=== PATIENT | male | born 1950 | race Asian ===

== ENCOUNTER 2023-05-30 22:52 | Emergency (ER) | payer MEDICARE, OTHER, SELFPAY ==
[2023-05-30 23:07] VITALS: BP 109/75
[2023-05-30 23:36] LABS: COVID-19 Antigen Negative (Negative)
--- NOTE | 2023-05-31 02:44 | ED.GENMED ---
History of Present Illness
General
Chief Complaint: Cold/Flu/URI Symptoms
Source: patient and family (Son who is accompanying and interpreting for the patient)
Exam Limitations: none
Time Seen by Provider: 05/31/23 02:34
Nursing documentation reviewed up to this point in time: agreed with
Travel History
Have you had any contact with someone who has COVID-19?: No
Do you have any symptoms of coronavirus? Fever > 100 degrees, chills, cough, shortness of breath, sore throat, loss of taste or smell, muscle aches, or headache?: Yes
Symptoms:: cough
History of Present Illness
History of Present Illness:
This is a non-Spanish speaking 72-year-old gentleman who has history of COPD/chronic bronchitis, hyperlipidemia, GERD, chronic abdominal pain and frequent chest pain without history of CAD nor thromboembolism.
He presents with 5-day history of cough occasionally productive of yellowish phlegm accompanied with nasal congestion. Noted to have low-grade fever tonight.
No recent travel, no leg pain or swelling.
Young niece was visiting last week and had mild URI symptoms at that time. Other than this no other close contacts with similar symptoms.
He notes left anterolateral chest discomfort that is worse with coughing. He also notes some lower back pain that is worse with movement. No radiation of the pain, no leg weakness nor numbness.
He has had no falls. No difficulty ambulating.
No nausea nor vomiting, denies diarrhea or constipation. No difficulty urinating. He has not been taking anything for symptoms.
He is chronically maintained on long-acting beta agonist/inhaled corticosteroid and utilizes albuterol inhaler for as needed cough. He follows regularly with business continuity management director and does not require supplemental oxygen.
Remote history of smoking.
Previous records reviewed. Prior hospitalization 1 year ago June 16 to June 21 for treatment of acute onset neutropenia, gastritis/gastroenteritis and iron deficiency anemia.
ED visit October 04, 2022 patient complained of anterior thigh pain along with some shortness of breath. Cardiac workup was negative, CT of the chest was negative for PE, negative for infiltrate. Thigh pain thought to be musculoskeletal in nature.
During that ED visit he was treated with DuoNeb nebulizer and steroids with improvement in shortness of breath. Discharged to home.
Past History
Past History
ED Past Medical History: COPD and GERD
ED Past Surgical History: Appendectomy and Other (hernia repair, aortoiliac bypass)
Social History
Tobacco: Former smoker (2 packs per day until November 2013)
Alcohol: None
Drug: None
Personal:
Living: with family (lives with daughter)
Employment: Not employed
Family History
Family History: Other (Noncontributory)
Phy Exam
Physical Exam
Physical Exam:
GENERAL: 72-year-old moderately thin male appears his stated age. He is bright and alert, easily communicative with his son and overall appears in no acute distress. Respirations are easy and nonlabored. Able to speak in full sentences without
difficulty. There is no nasal congestion. Rare brief dry cough is noted. Pulse ox 94% on room air.
EYE: pupils equal and reactive. anicteric
NECK: Supple, nontender, no meningismus, no significant adenopathy.
ENT: posterior pharynx is clear, oral mucosa is moist. TM clear b/l, nares patent.
CARDIAC: Regular rate and rhythm. no murmur.
LUNGS: no acute respiratory distress, moderately decreased breath sounds bilateral bases left greater than right, no wheezing nor rhonchi. Minimal tenderness left anterolateral chest wall. Palpation seems to reproduce patient's pain complaint.
There is no crepitus nor palpable bony abnormality.
ABDOMEN: Soft, nondistended, without focal tenderness, no r/g, no cvat. normoactive BS.
BACK: No midline bony tenderness. Straight leg raising is negative bilaterally.
NEUROLOGICAL: Alert and oriented x3, no focal neuro deficits. Gait is pulido and steady.
SKIN: Warm and dry, normal color, skin intact. No rash.
MUSCULOSKELETAL: No C/C/E. peripheral pulses are full and equal b/l. No palpable tenderness.
PSYCH: Normal and appropriate interaction.
Course
Orders/Labs/Results
Orders:
Orders
05/30/23 23:09
COVID-19 Antigen Urgent
Source: Nasal Swab
Influenza A+B Rapid Molecular Urgent
JITENDRA Source: Nasal Swab
Specimen Description:
05/31/23 02:37
CR Chest - 2 Views Urgent
Comment:
Reason For Exam: cough, fever
05/31/23 02:43
Electrocardiogram (*1) Urgent
Reason for Study: Chest Pain
EKG- Treatment ONCE
05/31/23 02:53
Acetaminophen [Tylenol] 650 mg .ROUTE .STK-MED ONE
Acetaminophen [Tylenol] 650 mg PO NOW STA
05/31/23 03:18
Doxycycline [Vibramycin] 100 mg PO NOW STA
Vital Signs
Initial and Last Documented VS:
Initial Vital Signs
Temp Pulse Resp BP Pulse Ox
100.4 F H 120 18 109/75 92
05/30/23 23:07 05/30/23 23:07 05/30/23 23:07 05/30/23 23:07 05/30/23 23:07
Last Documented Vital Signs
Temp Pulse Resp BP Pulse Ox
100.4 F H 120 18 109/75 92
05/30/23 23:07 05/30/23 23:07 05/30/23 23:07 05/30/23 23:07 05/30/23 23:07
MDM/Problems Addressed
Differential Diagnosis Includes:
Concern for viral URI, pneumonia, exacerbation of COPD, chest wall pain, pleural effusion. ACS, PE are much less likely. No history of coronary artery disease. No risk factors for thromboembolism and previous chest CT/PE study September 2022 was
negative for PE.
COVID and influenza testing are negative.
Will check chest x-ray and EKG.
Will give a dose of Tylenol for low-grade fever and pain.
Chronic conditions affecting care: COPD
*Radiology
Radiology exam reviewed: preliminary read by ED provider (Chest x-ray shows hyperinflation consistent with COPD. There is no evidence of infiltrate. Gas-filled large bowel at the left hemidiaphragm.)
*Pulse Oximetry
Patient hypoxic: no
*EKG
Interpreted by ED Provider?: Yes
Interpretation: normal
Comparison EKG: no changes (Unchanged from previous October 04, 2022)
Rate: normal
Rhythm: sinus
[place]: normal axis
Interval: normal interval
QRS Pattern: normal QRS
Ischemia: no ischemia
*Critical Care Note
Total Time (30-74mins, 75-104mins- exclusive of procedures): Not Applicable
Update Note
Update Note:
EKG shows normal sinus rhythm, normal axis, normal intervals, no acute ST-T wave abnormalities and overall similar and unchanged from previous EKG October 04, 2022.
Chest x-ray shows hyperinflation consistent with COPD, no evidence of infiltrate. There is moderate gas within the large bowel just beneath the left hemidiaphragm. This may be causing an element of left anterior lower chest discomfort and
left-sided abdominal discomfort.
Due to history of COPD/chronic lung disease, low-grade fever and cough reportedly productive of yellow phlegm he is certainly at risk for purulent bronchitis with an at risk for progression to pneumonia thus we will treat with a course of
doxycycline.
Short course of oral steroids.
Overall appears comfortable, no respiratory distress.
Recommend continuing his current medications and continue albuterol as needed for cough, shortness of breath.
Tylenol as needed for fever, pain.
Prompt follow-up with primary care physician for recheck.
ED Attending Note
-
Portions of this chart may have been created with voice recognition software.� Occasional wrong word or��sound alike� substitutions may have occurred due to the inherent limitations of voice recognition software.
Discharge Plan
Departure
Patient Disposition: Home (Routine Discharge)
Date of Disposition: 05/31/23
Time of Disposition: 03:23
Patient with high blood pressure during this ER visit?: No
Condition: Good
Discharge Problem:
Acute exacerbation of chronic bronchitis
Instructions: Chronic Obstructive Pulmonary Disease (COPD) (DC)
Prescriptions:
New
prednisone 20 mg tablet
40 mg PO DAILY Qty: 10 0RF
doxycycline monohydrate 100 mg capsule
100 mg PO BID Qty: 14 1RF
No Action
cyanocobalamin (vitamin B-12) 1,000 MCG tablet
1,000 mcg PO DAILY
aspirin 81 MG tablet,delayed release (DR/EC)
81 mg PO DAILY
ezetimibe 10 MG tablet
10 mg PO DAILY
rosuvastatin 20 MG tablet
20 mg PO QPM
Incruse Ellipta 62.5 MCG blister with device
1 puff IH R DAILY
albuterol sulfate 2.5 MG/3 ML solution for nebulization
2.5 mg inhalation R Q4HPRN PRN (Reason: sob)
fluticasone propion-salmeterol [Wixela Inhub] 1 EACH blister with device
1 inh IH R DAILY
albuterol sulfate [Proventil HFA] 90 MCG/PUFF HFA aerosol inhaler
1 puff inhalation R Q4HPRN PRN (Reason: shortness of breath)
vitamin A 2,400 mcg Capsule
800 mcg PO DAILY
zinc 50 mg Tablet
50 mg PO DAILY
pyridoxine (vitamin B6) 100 mg Tablet
100 mg PO DAILY
Visbiome 112.5 billion cell Capsule
1 cap PO DAILY
cholecalciferol (vitamin D3) [Vitamin D3] 50 mcg (2,000 unit) Capsule
50 mcg PO DAILY
Linzess 72 mcg Capsule
72 mcg PO DAILY
Patient Comments:
06/16/22- free samples from pcp
sennosides-docusate sodium [Senna Plus] 8.6-50 mg Tablet
1 tab PO BID 30 Days Qty: 60 0RF
pantoprazole 20 mg Tablet,Delayed Release (Dr/Ec)
40 mg PO DAILY 30 Days Qty: 60 0RF
tamsulosin 0.4 mg Capsule
0.4 mg PO HS 30 Days Qty: 30 0RF
ferrous sulfate [FeroSul] 325 mg (65 mg iron) Tablet
325 mg PO DAILY 30 Days Qty: 30 0RF
gabapentin 100 mg Capsule
100 mg PO HS 30 Days Qty: 30 0RF
clotrimazole [Antifungal (clotrimazole)] 1 % Cream
1 applic topical DAILY 14 Days Qty: 90 0RF
acetaminophen [Tylenol Extra Strength] 500 mg Tablet
500 mg PO Q6HPRN PRN (Reason: mild pain) Qty: 0 0RF
polyethylene glycol 3350 17 gram Powder In Packet
17 g PO DAILY PRN (Reason: constipation) 14 Days Qty: 100 0RF
prednisone 50 mg tablet
50 mg PO DAILY Qty: 4 0RF
Activity Restrictions/Additional Instructions:
Follow-up with your family doctor and/or business continuity management director for recheck early next week.
Continue Tylenol as needed for discomfort.
Continue all of your regular maintenance medications.
Stay well-hydrated on a daily basis.
[2023-05-31] MEDS: TYLENOL 650 MG PO (03:12)
[2023-05-31] MEDS: VIBRAMYCIN 100 MG PO (03:24)
[2023-05-31 03:30] VITALS: BP 116/99
== END 2023-05-31 03:45 | disposition home or self-care (01) ==
LOC: EMR 22:52
PROVIDERS: EMERGENCY PHYSICIAN Emergency Medicine; FAMILY PHYSICIAN Family Medicine
DX: J44.1 Chronic obstructive pulmonary disease with (acute) exacerbation (principal); E78.5 Hyperlipidemia, unspecified; K21.9 Gastro-esophageal reflux disease without esophagitis; G89.29 Other chronic pain; R10.9 Unspecified abdominal pain; Z11.52 Encounter for screening for COVID-19; Z87.891 Personal history of nicotine dependence
CPT/HCPCS: 99285; 71046; 87502; 87811; 93005

== ENCOUNTER 2023-09-30 18:33 | Inpatient (IN) | payer MEDICARE, OTHER, SELFPAY ==
[2023-09-30 15:38] VITALS: BP 106/73
--- NOTE | 2023-09-30 16:28 | ED.GENMED ---
History of Present Illness
General
Chief Complaint: Rectal Bleeding
Source: patient and family (Daughter at bedside interpreting. Patient speaks Maltese)
Exam Limitations: none
Time Seen by Provider: 09/30/23 15:58
Nursing documentation reviewed up to this point in time: agreed with
Travel History
Have you had any contact with someone who has COVID-19?: No
Do you have any symptoms of coronavirus? Fever > 100 degrees, chills, cough, shortness of breath, sore throat, loss of taste or smell, muscle aches, or headache?: No
History of Present Illness
History of Present Illness:
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 They noted that he had heme positive stools sent here for
evaluation. Daughter states he has been having black stools recently. No thinners. States he takes Advil only occasionally. His last dose was 3 days ago for headache.
Past History
Past History
ED Past Medical History: COPD, GERD and Hypercholesterolemia
ED Past Surgical History: Appendectomy and Other (hernia repair, aortoiliac bypass)
Social History
Tobacco: Former smoker (2 packs per day until November 2013)
Alcohol: None
Drug: None
Personal:
Living: with family (lives with daughter)
Employment: Not employed
Review of Systems
Review of Systems
Allergies reviewed?: Yes
All Other Systems: ROS reviewed and negative except as documented in HPI and ROS
Constitutional: Denies fever or fatigue
Respiratory: Reports cough (chronic); Denies trouble breathing
Cardiac: Denies chest pain
ABD/GI: Reports abdominal pain, black stools and anorexia (daughter states 'he doesn't eat very much'); Denies nausea, vomiting or diarrhea
: Denies dysuria or difficulty voiding
Musculoskeletal: Reports no symptoms
Skin: Reports no symptoms
Neurological: Reports no symptoms
Phy Exam
Physical Exam
Physical Exam:
GENERAL: No acute distress. A&Ox3. Cachectic
CONSTITUTIONAL: Afebrile.
EYES:clear, conjunctivae normal
ENMT: moist mucus membranes, Pharynx nl
RESPIRATORY: Regular respirations, nonlabored, lungs clear.
CARDIOVASCULAR: Regular rate and rhythm, no murmurs, no rubs.
GI: Soft, nontender, normal BS
Rectal: dark stool, heme positive
MUSCULOSKELETAL: Moves with ease. Well perfused.
SKIN: Warm, dry, pink
PSYCH: Normal mood and affect. Well kept, interactive and appropriate
NEUROLOGIC: Awake, alert and oriented. No focal neurological deficits
Course
Orders/Labs/Results
Orders:
Orders
09/30/23 15:42
EKG [Electrocardiogram (*1)] Urgent
Reason for Study: Chest Pain
EKG- Treatment ONCE
09/30/23 16:22
IV Insert/Care/Rem.- Treatment PRN
Pantoprazole 80 mg/100 ml Nss [Protonix] 80 mg in 100 ml IV NOW
Pantoprazole [Protonix IV] 80 mg IV NOW STA
09/30/23 16:24
Type+Screen Urgent
Amylase Urgent
Complete Blood Count/With Diff Urgent
Comprehensive Metabolic Panel Urgent
PTT Urgent
Prothrombin Time Urgent
09/30/23 17:26
GASTROINTESTINAL CONSULT Urgent
Consulting Provider: Divya Estrada
Was physician already notified: Yes
Reason for consult: Rectal bleeding
09/30/23 17:57
Admit/Transfer Patient As Directed
Co-Sign Provider:
Level of Care: Inpatient admission
Assign to:: Medical/Surgical
Physician / Group: lary ramos
Diagnosis: GI bleed
Reason for Hospitalization: Gi bleed
Expected length of stay greater than two midnights?: Yes
ELOS- Estimated Length of Stay in days: 3
I certify the patient meets the requirements for IP care: Yes
09/30/23 17:58
Code Status As Directed
Resuscitation Status: Full Code
09/30/23 20:06
Albuterol Nebs [Ventolin Nebules] 2.5 mg INH R Q4HPRN PRN
Albuterol [ProAIR HFA INHALER] 1 puff INH R Q4HPRN PRN
Pantoprazole [Protonix IV] 40 mg IV BID
09/30/23 20:06
Activity As Directed
Activity Level: As Tolerated
INT (Intravenous Needle Therapy) As Directed
Comment: Place 2 IV catheters of the largest bore possible until stable
Orthostatic Vital Signs As Directed
Orthostatic VS Frequency: Now
Comment: then every four hours for twenty-four hours
Venous Foot Pumps As Directed
Location: Bilateral feet
Vital Signs As Directed
Frequency: Per unit guidelines
DX Deep Vein Thrombosis Video Routine
09/30/23 22:00
Tamsulosin [Flomax] 0.4 mg PO HS
10/01/23 00:00
H&H Q8H
10/01/23 Breakfast
NPO
Allow oral meds: Yes
Allow clear liquids: No
Basic Metabolic Panel IN AM
Complete Blood Count/No Diff IN AM
10/01/23 08:00
H&H Q8H
Ezetimibe [Zetia] 10 mg PO DAILY
Ferrous Sulfate [Feosol] 325 mg PO DAILY
Rosuvastatin Calcium [Crestor] 20 mg PO DAILY
10/02/23 06:00
Basic Metabolic Panel IN AM
Complete Blood Count/No Diff IN AM
10/03/23 06:00
Basic Metabolic Panel IN AM
Complete Blood Count/No Diff IN AM
10/04/23 06:00
Basic Metabolic Panel IN AM
Complete Blood Count/No Diff IN AM
10/05/23 06:00
Basic Metabolic Panel IN AM
Complete Blood Count/No Diff IN AM
Abnormal Lab Results
09/30/23
16:24
WBC 3.0 L 10^3/uL
(4.8-10.8)
RBC 4.38 L 10^6/uL
(4.70-6.10)
Hct 38.7 L %
(39.0-52.0)
MPV 10.6 H fL
(7.4-10.4)
Monocytes % 10.0 H %
(1.7-9.3)
PT 15.2 H Sec
(11.4-14.6)
APTT 35.6 H Sec
(23.4-35.0)
Creatinine 0.6 L mg/dL
(0.7-1.3)
Amylase 111 H U/L
(30-110)
09/30/23 16:24
09/30/23 16:24
Vital Signs
Initial and Last Documented VS:
Initial Vital Signs
Temp Pulse Resp BP Pulse Ox
97.9 F 103 16 106/73 96
09/30/23 15:38 09/30/23 15:38 09/30/23 15:38 09/30/23 15:38 09/30/23 15:38
Last Documented Vital Signs
Temp Pulse Resp BP Pulse Ox
97.6 F 103 18 106/73 97
09/30/23 20:13 09/30/23 15:38 09/30/23 20:13 09/30/23 15:38 09/30/23 20:13
MDM/Problems Addressed
Differential Diagnosis Includes:
GI bleed
MDM/Problems Addressed:
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 They noted that he had heme positive stools sent here for
evaluation. Daughter states he has been having black stools recently. No thinners. States he takes Advil only occasionally. His last dose was 3 days ago for headache.
5:20 p.m.
CBC: unremarkable
CMP: normal
EKG: NSR
Although stable, is elderly and frail, mildly tachycardic on admission, black heme + stools with for past week, no obvious hemorrhoids
Plan: Admit: GI bleed
Chronic conditions affecting care: COPD
*Critical Care Note
Total Time (30-74mins, 75-104mins- exclusive of procedures): Not Applicable
ED Attending Note
-
Portions of this chart may have been created with voice recognition software.� Occasional wrong word or��sound alike� substitutions may have occurred due to the inherent limitations of voice recognition software.
Discharge Plan
Departure
Patient Disposition: Admit
Date of Disposition: 09/30/23
Time of Disposition: 17:25
Admit to: Med/Surg
Presentation/result/management discussed w/ accepting MD/DO: Hospitalist
Condition: Fair
Discharge Problem:
Rectal bleeding
Interventions
Interventions:
*Risk Screen - Suicide Last Done: 09/30/23 16:32
*General Assessment Last Done: 09/30/23 15:38
*Neglect/Abuse Screening Last Done: 09/30/23 16:32
ED- Fall Risk Assessment Last Done: 09/30/23 16:36
*ED COVID-19 Vaccine History Last Done: 09/30/23 15:38
*Nursing Disposition Last Done: 09/30/23 19:43
HQ-Conny[facility]-Tntptdempn Assessment Last Done: 09/30/23 16:36
ED- Cardiac Assessment Last Done: 09/30/23 17:55
ED- Pulmonary Assessment Last Done: 09/30/23 16:36
Discharge Date and Time
Discharge Date/Time: 09/30/23 19:43
[2023-09-30 16:36] LABS: % Eosinophils 0.7 % (0-6); % Lymphocytes 39.3 % (20.5-51.1); Absolute Lymphocytes 1.2 10^3/uL (1.2-3.4); Absolute Monocytes 0.3 10^3/uL (0.1-0.6); Absolute Neutrophils 1.5 10^3/uL (1.4-6.5); Hematocrit 38.7 % (39.0-52.0); Hemoglobin 13.3 g/dL (13.0-18.0); Mean Corp Hgb Conc. 34.4 g/dL (33.0-37.0); Mean Corpuscular Hgb 30.4 pg (27.0-31.0); Mean Corpuscular Volume 88.4 fL (80.0-94.0); Mean Platelet Volume 10.6 fL (7.4-10.4); Nucleated Red Blood Cells % 0 % (-); Platelet Count 247 10^3/uL (130-400); Red Blood Cell Count 4.38 10^6/uL (4.70-6.10); Red Cell Dist. Width 13.9 % (11.5-14.5)
[2023-09-30 16:48] LABS: ALT (SGPT) 20 U/L (0-50); AST (SGOT) 32 U/L (17-59); Alkaline Phosphatase 61 U/L (38-126); Amylase 111 U/L (30-110); Blood Urea Nitrogen 16 mg/dl (9-20); Calcium 9.2 mg/dl (8.4-10.2); Carbon Dioxide 26 mmol/L (22-30); Chloride 106 mmol/L (98-107); Estimated Creatinine Clearance 69 ml/min; Glucose 95 mg/dl (70-99); INR 1.22; PT 15.2 Sec (11.4-14.6); Potassium 3.8 mmol/L (3.5-5.1); Sodium 138 mmol/L (135-145); Total Bilirubin 0.5 mg/dl (0.2-1.3); Total Protein 6.9 g/dl (6.3-8.2); eGFR > 60.00
[2023-09-30 16:49] LABS: APTT 35.6 Sec (23.4-35.0)
[2023-09-30] MEDS: PROTONIX 100 IV (16:55)
[2023-09-30] MEDS: PROTONIX IV 80 MG IV (16:55)
--- NOTE | 2023-09-30 17:37 | HPS.HSE ---
Addendum entered and electronically signed by García Castro MD 09/30/23 18:21:
I saw and examined the patient.
The MANAGER BOOK or PA's note was reviewed and I agree with the note.
Comment:
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
quite some time. �does take Advil occasionally, last dose 3 days ago for headache -otherwise takes ibuprofen every couple months for headache..� Otherwise on aspirin.� Former smoker, last time with tobacco use 2013.� No history of cancer although
does not knowledge 10 pound weight loss over the last few months.� Obvious evidence of underweight, states he cannot eat due to GI issues and has been a chronic issue. �Daughter states this is due to constipation. �Blood pressure 106/73, pulse 103,
respiratory rate 16, 96% on room air.� Hemoglobin 13.3 (14.7 - /), INR 1.22 amylase 111.� Given PPI drip.�
Plan- NPO; PPI IV twice daily, monitor CBC closely, maintain hemoglobin over 7.� GI consult for possible EGD.� Hold aspirin in the interim. Await GI as they may be able to see records for previous Scope 2 years ago
Original Note:
Family Physician
-
Family Physician: Gianluca Lewis, DO
Chief Complaint
-
stomach pain
black stool
History of Present Illness
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 They noted that he had heme positive stools sent here for
evaluation. Daughter states he has been having black stools recently. No thinners. States he takes Advil only occasionally. His last dose was 3 days ago for headache. he lost 10lbs in one month. he eats little because he is always constipated. he
had clean colonoscopy two years ago. denied dizzy or syncopal episode. patient does have chronic sob, chest tightness from COPD. denid dysuria or hematuria.
hgb stable. on PPI drip. admitting for further managment.
Medical History
Past Medical History
Past Medical History: Reports Other
Additional Past Medical History:
COPD
Colon adenoma
Anemia
dyslipidemia
Coronary artery disease
Irritable bowel syndrome
Hargrove's esophagus
Past Surgical History: Reports Other
Additional Past Surgical History:
Appendectomy
Hernia repair
Social History
Tobacco: Former Smoker
Alcohol: None
Drug: None
Living: With Family
Family History
Family History: Not pertinent
Allergies / Home Medications
Allergies reflects when Allergies were last updated in [facility].
Home Medications with original date entered in [facility]
Allergy/Medication List:
Allergies
Allergy/AdvReac Type Severity Reaction Status Date / Time
No Known Allergies Allergy Verified 09/30/23 15:41
Home Medications
cyanocobalamin (vitamin B-12) 1,000 mcg tablet 1,000 mcg PO DAILY 04/23/21
ezetimibe 10 mg tablet 10 mg PO DAILY 04/23/21
albuterol sulfate 2.5 mg/3 mL (0.083 %) solution for nebulization 2.5 mg inhalation R Q4HPRN PRN sob 09/26/21
albuterol sulfate 90 mcg/actuation aerosol inhaler (Proventil HFA) 1 puff inhalation R Q4HPRN PRN shortness of breath 06/16/22
cholecalciferol (vitamin D3) 50 mcg (2,000 unit) capsule (Vitamin D3) 50 mcg PO DAILY 06/16/22
vitamin A 2,400 mcg capsule 800 mcg PO DAILY 06/16/22
ferrous sulfate 325 mg (65 mg iron) tablet (FeroSul) 325 mg PO DAILY 30 days #30 tabs 06/21/22
sennosides 8.6 mg-docusate sodium 50 mg tablet (Senna Plus) 1 tab PO BID 30 days #60 tabs 06/21/22
tamsulosin 0.4 mg capsule 0.4 mg PO HS 30 days #30 caps 06/21/22
ascorbic acid (vitamin C) 500 mg tablet (Vitamin C) 500 mg PO DAILY 09/30/23
aspirin 81 mg tablet,delayed release 81 mg PO DAILY 09/30/23
ibuprofen 200 mg tablet (Advil) 400 mg PO Q8HPRN PRN mild pain 09/30/23
rosuvastatin 20 mg tablet 20 mg PO DAILY 09/30/23
vitamin E 268 mg (400 unit) capsule 268 mg PO DAILY 09/30/23
zinc sulfate 50 mg zinc (220 mg) capsule 50 mg PO DAILY 09/30/23
Review of Systems
-
Constitutional: Reports No Symptoms
EENT: Reports No Symptoms
Respiratory: Reports No Symptoms
Cardiac: Reports No Symptoms
Abdomen/GI: Reports Abdominal Pain and Black Stools
: Reports No Symptoms
Musculoskeletal: Reports No Symptoms
Skin: Reports No Symptoms
Neurological: Reports No Symptoms
Endocrine: Reports No Symptoms
Hematologic/Lymphatic: Reports No Symptoms
Psych: Reports No Symptoms
Physical Exam
Vital Signs
Vital Signs
Temp Pulse Resp BP Pulse Ox
97.9 F 103 16 106/73 96
09/30/23 15:38 09/30/23 15:38 09/30/23 15:38 09/30/23 15:38 09/30/23 15:38
Physical Exam
General: Well Developed, Well Nourished and No Apparent Distress
HEENT: NormoCephalic, Moist mucous membranes and Atraumatic
Respiratory: Clear
Cardiac: S1/S2 and Regular Rhythm; No Murmur or Rub
GI: Soft, Non Tender, Non Distended and Normal Bowel Sounds; No Organomegaly
Rectal: Deferred by Provider
Musculoskeletal: No Clubbing, No Cyanosis and No Edema
Skin: No Rash
Neuro: AO x 3 and Nonfocal/grossly intact
Psych: Calm
Laboratory Results
-
09/30/23 16:24
09/30/23 16:24
Laboratory Results
PT 15.2 Sec (11.4-14.6) H 09/30/23 16:24
INR 1.22 09/30/23 16:24
APTT 35.6 Sec (23.4-35.0) H 09/30/23 16:24
Total Bilirubin 0.5 mg/dl (0.2-1.3) 09/30/23 16:24
AST 32 U/L (17-59) 09/30/23 16:24
ALT 20 U/L (0-50) 09/30/23 16:24
Alkaline Phosphatase 61 U/L (38-126) 09/30/23 16:24
Data Reviewed
-
Lab Data: Labs Reviewed by me
Impression/Plan
-
#GI bleed
-Hemoglobin stable at 13.3
-Trend hemoglobin
-Clear liquid diet for now
-N.p.o. after midnight
-IV PPI twice a day
-GI consult
#COPD not in acute exacerbation
-nebs from home continued
#HLD
-statin continued
#GERD/IBS
- PPI
#BPH
-Flomax continued
#DVT prophylaxis
-scd
#CODE status
-full code
[2023-09-30 20:13] VITALS: BP 118/75; BP 132/75; BP 97/75; PULSE 102; PULSE 82; PULSE 83; BMI 15.0
--- NOTE | 2023-09-30 20:43 | PTCARENOTE ---
Receive pt from ER. Pt alert oriented X3 accompanied by his daughter (Kisha). Pt is from [place] originally and he is Persian speaking. Pt denies dizziness, or presyncope. He admits to SOB with walking that the pt attributes to 'lungs problems' related
to smoking. Pt assist X1 to his bed, steady on his feet. Pt oriented to the room, call hebert within reach. VSS (T=97.6, HR=82, RR=18, UY=318/75, SpO2=97% on RA). Orthostatic BP is positive. Pt BP ritlhga=010/75, standing BP=97/75. Pt denies dizziness
or lightheadedness. Will continue to monitor the pt.
[2023-09-30] MEDS: PROTONIX IV 40 MG IV (21:13)
[2023-09-30] MEDS: NSS (PRESERVATIVE FREE) 10 ML IV (21:13)
[2023-09-30] MEDS: FLOMAX 0.400000000000000022 MG PO (21:14)
[2023-09-30 23:46] VITALS: BP 103/73; BP 113/66; BP 78/59; PULSE 120; PULSE 80; PULSE 89
[2023-10-01 00:40] LABS: Hematocrit 37.5 % (39.0-52.0); Hemoglobin 12.6 g/dL (13.0-18.0)
[2023-10-01 03:46] VITALS: BP 66/44; BP 94/60; BP 99/61; PULSE 104; PULSE 120; PULSE 79
[2023-10-01 07:44] LABS: Hematocrit 38.9 % (39.0-52.0); Hemoglobin 12.8 g/dL (13.0-18.0); Mean Corp Hgb Conc. 32.9 g/dL (33.0-37.0); Mean Corpuscular Volume 91.1 fL (80.0-94.0); Mean Platelet Volume 10.6 fL (7.4-10.4); Platelet Count 204 10^3/uL (130-400); Red Blood Cell Count 4.27 10^6/uL (4.70-6.10); Red Cell Dist. Width 13.8 % (11.5-14.5); White Blood Cell Count 2.5 10^3/uL (4.8-10.8)
[2023-10-01 08:08] LABS: Blood Urea Nitrogen 14 mg/dl (9-20); Calcium 9.3 mg/dl (8.4-10.2); Carbon Dioxide 24 mmol/L (22-30); Chloride 106 mmol/L (98-107); Estimated Creatinine Clearance 67 ml/min; Glucose 76 mg/dl (70-99); Potassium 3.8 mmol/L (3.5-5.1); Sodium 138 mmol/L (135-145); eGFR > 60.00
[2023-10-01] MEDS: NSS (PRESERVATIVE FREE) 10 ML IV ×2 (08:22→19:49)
[2023-10-01] MEDS: FEOSOL 325 MG PO (08:22)
[2023-10-01] MEDS: CRESTOR 20 MG PO (08:22)
[2023-10-01] MEDS: PROTONIX IV 40 MG IV ×2 (08:22→19:49)
[2023-10-01] MEDS: ZETIA 10 MG PO (08:22)
--- NOTE | 2023-10-01 08:35 | W.PN.HOSP.TC ---
Addendum entered and electronically signed by García Castro MD 10/01/23 12:44:
I saw and examined the patient.
The Resident note was reviewed and I agree with the note.
Comment:
Await GI recs for EGD
PPI IV
Diet as per GI, most likely NPO at [place]
General: Cachectic
HEENT: Normocephalic, Atraumatic, PERRLA and Other (Dry mucous membranes.)
Respiratory: Clear to Auscultation (No wheezes, rales, rhonchi)
Cardiac: Regular Rhythm, S1/S2 and Other (No murmurs, rubs, gallops.)
GI: Normal Bowel Sounds, Flat and Other (Visible pulsations in his abdomen right below the sternum.)
Genito-urinary: No Costovertebral Tender
Musculoskeletal: No Clubbing, No Cyanosis and No Edema
Neuro: AO x 3 and No Motor Deficits
Psych: Calm
Plan:
#GI bleed
#Melena
-Hemoglobin stable at 13.
-Maintain HgB >7; trend cbc daily
-GI consult; Most likely can be clears, then NPO at [place] if EGD tomorrow
-IV PPI twice a day.
-IV fluids maintenance.
#Underweight-
Likely multifactorial-GI bleeding/COPD/edentulous/history of celiac artery disease-s/p aortoceliac artery bypass.
Current body weight-42.4 kgs.
-Educated on nutrition
COPD-
Not in acute exacerbation.
Continue home medications
Hyperlipidemia
Continue statin
GERD/IBS
Continue PPI
BPH
Continue Flomax
DVT prophylaxis
Continue SCD.
CODE STATUS
Full code
Original Note:
Today's Communication/Plan
-
Pending GI consult.
Resume clear liquid diet if procedure not planned for today.
Procedure planned for tomorrow, initiate n.p.o. past midnight
Assessment / Plan
Assessment / Plan
Assessment-
72-year-old male with PMHx significant for COPD, hyperlipidemia, GERD, aortoceliac artery bypass, hernia repair, smoking presents to the ER for evaluation of black stools-and failure to thrive.
Plan-
GI bleed-
Hemoglobin stable at 13.
Goal hemoglobin greater than 7.
GI consult pending. Patient is NPO.
IV PPI twice a day.
IV fluids maintenance.
Failure to thrive-
Likely multifactorial-GI bleeding/COPD/edentulous/history of celiac artery disease-s/p aortoceliac artery bypass.
GI on board to evaluate further.
Current body weight-42.4 kgs.
COPD-
Not in acute exacerbation.
Continue home medications for
Hyperlipidemia
Continue statin
GERD/IBS
Continue PPI
BPH
Continue Flomax
DVT prophylaxis
Continue SCD.
CODE STATUS
Full code
Anticipated Discharge: 24 - 48 hours
Subjective/Interval History
-
Date of Service: October 01, 2023
Patient complains of epigastric pain radiating into his left upper quadrant in the evening yesterday that is relieved by his IV medication.
No bowel movement in the a.m. today.
Decrease in appetite and fatigue
Objective Data
-
Labs:
Laboratory Results
10/01/23 10/01/23 10/01/23
00:28 04:27 08:06
WBC 2.5 L
Hgb 12.6 L 12.8 L 13.0
Hct 37.5 L 38.9 L 39.0
Plt Count 204
Sodium 138
Potassium 3.8
Chloride 106
Carbon Dioxide 24
BUN 14
Creatinine 0.6 L
Glucose 76
Calcium 9.3
Vital Signs:
Vital Signs
Temp Pulse Resp BP Pulse Ox
98.1 F 103 18 106/73 95
10/01/23 03:46 09/30/23 15:38 10/01/23 03:46 09/30/23 15:38 10/01/23 03:46
I&O
09/30/23 10/01/23 10/02/23
06:59 06:59 06:59
Intake Total 0 / 0
Balance 0 / 0
Review of Systems
-
History Source: Patient
Constitutional: Reports No Appetite and Fatigue
Respiratory: Reports No Symptoms
Cardiac: Reports No Symptoms
Abdomen/GI: Reports Abdominal Pain (Epigastric radiating into left upper quadrant) and Anorexia
Genitourinary: Reports No Symptoms
Musculoskeletal: Reports No Symptoms
Neuro: Reports No Symptoms
Hematologic / Lymphatic: Reports No Symptoms
Allergy / Immunology: Reports No Symptoms
Physical Exam
-
General: Cachectic
HEENT: Normocephalic, Atraumatic, PERRLA and Other (Dry mucous membranes.)
Respiratory: Clear to Auscultation (No wheezes, rales, rhonchi)
Cardiac: Regular Rhythm, S1/S2 and Other (No murmurs, rubs, gallops.)
GI: Normal Bowel Sounds, Flat and Other (Visible pulsations in his abdomen right below the sternum.)
Genito-urinary: No Costovertebral Tender
Musculoskeletal: No Clubbing, No Cyanosis and No Edema
Neuro: AO x 3 and No Motor Deficits
Psych: Calm
[2023-10-01 08:42] VITALS: BP 107/64
[2023-10-01 10:53] VITALS: BP 108/72; BP 85/50; BP 88/65; PULSE 105; PULSE 108; PULSE 87
--- NOTE | 2023-10-01 14:52 | CON.GI ---
Consultation
-
Date/Time Consultation Requested: 09/30/23
Date/Time Consultation Performed: 10/01/23
Requesting Provider: Scarlet Whitt
Performing Provider: Dr Estrada
Reason for Consultation: dark stools
Medical History
Chief Complaint / HPI
Chief Complaint: dark stools
History of Present Illness:
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 Interview was done with Lithuanian field assessor line. He lives with daughter and had not had BM in over 5 days. Yesterday noted
to be dark and he was concerned for blood. He was seen in urgent care and sent to ED. There he had heme + stool. He does use oral iron for over the past 3 years. He has chronic post prandial abd pain and as a result has lost bout 20lbs in the
past year. He is known to GI/Dr Xie in past but has not been seen in the office for over 1yr time. He had EGD done in Jun [address] Torres that showed small hiatal hernia, gastritis. Biopsies were negative for EoE or HPylori. He denies
odynophagia, dysphagia, nausea/vomiting, reflux and heartburn. Sometimes there is gas bloating that is improved with using his ? inhaler. There is mention of advil for pain upon prior notes but he denies that. He uses OTC probiotic. One month ago
he had covid.
Past Medical History
Past Medical History: Other (COPD, CAD, IBS, GERD with Martinez's esophagus, h/o colonic polyp, anemia)
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
Social History
Tobacco: Former Smoker
Alcohol: None
Drug: None
Living: With Family (lives with daughter)
Allergies / Home Medications
Allergy/AdvReac Type Severity Reaction Status Date / Time
No Known Allergies Allergy Verified 09/30/23 15:41
�Medication �Instructions �Recorded
cyanocobalamin (vitamin B-12) 1,000 mcg PO DAILY Supplement 04/23/21
1,000 mcg tablet
ezetimibe 10 mg tablet 10 mg PO DAILY High Cholesterol 04/23/21
albuterol sulfate 2.5 mg/3 mL 2.5 mg inhalation R Q4HPRN PRN sob 09/26/21
(0.083 %) solution for nebulization
albuterol sulfate 90 mcg/actuation 1 puff inhalation R Q4HPRN PRN 06/16/22
aerosol inhaler (Proventil HFA) shortness of breath
cholecalciferol (vitamin D3) 50 50 mcg PO DAILY Supplement 06/16/22
mcg (2,000 unit) capsule (Vitamin
D3)
vitamin A 2,400 mcg capsule 800 mcg PO DAILY Supplement 06/16/22
ferrous sulfate 325 mg (65 mg 325 mg PO DAILY 30 days #30 tabs 06/21/22
iron) tablet (FeroSul)
sennosides 8.6 mg-docusate sodium 1 tab PO BID 30 days #60 tabs 06/21/22
50 mg tablet (Senna Plus)
tamsulosin 0.4 mg capsule 0.4 mg PO HS 30 days #30 caps 06/21/22
ascorbic acid (vitamin C) 500 mg 500 mg PO DAILY Supplement 09/30/23
tablet (Vitamin C)
aspirin 81 mg tablet,delayed 81 mg PO DAILY Blood Clot 09/30/23
release Prevention/Tx
ibuprofen 200 mg tablet (Advil) 400 mg PO Q8HPRN PRN mild pain 09/30/23
rosuvastatin 20 mg tablet 20 mg PO DAILY High Cholesterol 09/30/23
vitamin E 268 mg (400 unit) capsule 268 mg PO DAILY Supplement 09/30/23
zinc sulfate 50 mg zinc (220 mg) 50 mg PO DAILY Supplement 09/30/23
capsule
Review of Systems
-
All other systems: A 12 pt ROS was Negative except as stated above in HPI
Vital Signs
Temp Pulse Resp BP Pulse Ox
98 F 87 16 107/64 97
10/01/23 08:42 10/01/23 13:42 10/01/23 13:42 10/01/23 08:42 10/01/23 13:42
Physical Exam
Exam
GEN: No acute distress, conversant, pleasant hard of hearing, cachexia
HEENT: anicteric, extraocular movements intact, clear oropharynx without exudates
GI: soft, non-distended, not tender to palpation, normal active bowel sounds, no hepatosplenomegaly
EXT: warm, well perfused, 1+ edema bilaterally
NEURO: AAOx3, non-focal
Results
WBC 2.5 10^3/uL (4.8-10.8) L 10/01/23 04:27
Hgb 13.0 g/dL (13.0-18.0) 10/01/23 08:06
Hct 39.0 % (39.0-52.0) 10/01/23 08:06
MCV 91.1 fL (80.0-94.0) 10/01/23 04:27
Plt Count 204 10^3/uL (130-400) 10/01/23 04:27
Absolute Neuts (auto) 1.5 10^3/uL (1.4-6.5) 09/30/23 16:24
PT 15.2 Sec (11.4-14.6) H 09/30/23 16:24
INR 1.22 09/30/23 16:24
APTT 35.6 Sec (23.4-35.0) H 09/30/23 16:24
Sodium 138 mmol/L (135-145) 10/01/23 04:27
Potassium 3.8 mmol/L (3.5-5.1) 10/01/23 04:27
Chloride 106 mmol/L (98-107) 10/01/23 04:27
Carbon Dioxide 24 mmol/L (22-30) 10/01/23 04:27
BUN 14 mg/dl (9-20) 10/01/23 04:27
Creatinine 0.6 mg/dL (0.7-1.3) L 10/01/23 04:27
Calcium 9.3 mg/dl (8.4-10.2) 10/01/23 04:27
Total Bilirubin 0.5 mg/dl (0.2-1.3) 09/30/23 16:24
AST 32 U/L (17-59) 09/30/23 16:24
ALT 20 U/L (0-50) 09/30/23 16:24
Alkaline Phosphatase 61 U/L (38-126) 09/30/23 16:24
Amylase 111 U/L (30-110) H 09/30/23 16:24
Diagnostic Image Results:
AXR small volume stool burden
Prior GI Procedures:
06/2022 EGD: Dr Torres - Small hiatal hernia.
- Erythematous mucosa in the gastric body and antrum.
Biopsied. Retained pill fragments.
- Normal examined duodenum. Biopsied.
- Several biopsies were obtained in the middle third
of the esophagus.
02/2019 Colonoscopy:
The perianal and digital rectal examinations were normal.
A 4 mm polyp was found in the transverse colon. The polyp was sessile.
The polyp was removed with a jumbo cold forceps. Resection and retrieval
were complete. Estimated blood loss was minimal.
The exam was otherwise normal throughout the examined colon.
The terminal ileum appeared normal.
Assessment / Plan
-
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 He is chronically on oral iron and Hbg has been stable (13---> 13) He does have chronic post prandial abd pain and wt
loss of 20lbs concerning for ongoing chronic mesenteric ischemia.
Impression
- Dark stools with normal Hbg
ddx includes oral iron use, hemorrhoids, PUD or ectasia
- Chronic post prandial abd pain
- h/o aorto-celiac artery bypass
- Wt loss of 20lbs in past year
- COPD
- GERD with martinez's
- H/o colonic polyps
- Remote tobacco use
- Constipation
Recommendations
- AXR with small volume stool burden
- CTAngio abd/pelvis ordered
- FLD for now
- Trend H/H, add on iron panel
- Add on lactic acid
- C/w PPI BID
- Miralax daily
Will follow with you. Daughter updated via phone by myself today
Data Reviewed
-
CT Scan: Report Reviewed by me
-
-
Thank you for consultation and allowing me to participate in the patient's care. Please call the child nutrition manager GI physician during the after hours with any questions or concerns.
[2023-10-01 15:48] LABS: Iron 83 ug/dl (49-181)
[2023-10-01 15:57] LABS: Percent Saturation 29 % (20-50); Total Iron Binding Capacity 286 ug/dl (261-462)
[2023-10-01 16:01] VITALS: BMI 15.0
[2023-10-01 16:22] VITALS: BP 78/47; BP 91/52; BP 97/64; PULSE 109; PULSE 140; PULSE 90
[2023-10-01 16:22] LABS: Lactic Acid 1.2 mmol/L (0.7-2.0)
[2023-10-01 16:58] LABS: Ferritin 46.6 ng/ml (17.9-464.0)
[2023-10-01] MEDS: MIRALAX 17 GRAMS PO (18:31)
[2023-10-01 21:50] VITALS: BP 100/64; BP 109/76; BP 114/73; PULSE 129; PULSE 85; PULSE 91
[2023-10-01] MEDS: FLOMAX 0.400000000000000022 MG PO (21:58)
[2023-10-01 23:40] VITALS: BP 108/71
[2023-10-02 00:31] LABS: Hepatitis C Antibody Negative (Negative)
[2023-10-02 07:00] VITALS: BP 95/63
[2023-10-02 07:21] LABS: Hematocrit 37.6 % (39.0-52.0); Hemoglobin 12.9 g/dL (13.0-18.0); Mean Corp Hgb Conc. 34.3 g/dL (33.0-37.0); Mean Corpuscular Hgb 30.3 pg (27.0-31.0); Mean Corpuscular Volume 88.3 fL (80.0-94.0); Mean Platelet Volume 10.4 fL (7.4-10.4); Platelet Count 209 10^3/uL (130-400); Red Blood Cell Count 4.26 10^6/uL (4.70-6.10); Red Cell Dist. Width 14.1 % (11.5-14.5)
[2023-10-02 07:30] LABS: White Blood Cell Count 2.2 10^3/uL (4.8-10.8)
[2023-10-02 07:42] LABS: Blood Urea Nitrogen 16 mg/dl (9-20); Calcium 8.8 mg/dl (8.4-10.2); Carbon Dioxide 24 mmol/L (22-30); Chloride 106 mmol/L (98-107); Estimated Creatinine Clearance 67 ml/min; Glucose 75 mg/dl (70-99); Potassium 4.1 mmol/L (3.5-5.1); Sodium 138 mmol/L (135-145); eGFR > 60.00
--- NOTE | 2023-10-02 07:56 | PTCARENOTE ---
WBC 2.2 this am. Hospitalist made aware.
[2023-10-02] MEDS: CRESTOR 20 MG PO (08:58)
[2023-10-02] MEDS: NSS (PRESERVATIVE FREE) 10 ML IV (08:58)
[2023-10-02] MEDS: MIRALAX PO ×2 (08:58→09:13)
[2023-10-02] MEDS: ZETIA 10 MG PO (08:58)
[2023-10-02] MEDS: PROTONIX IV 40 MG IV (08:58)
[2023-10-02] MEDS: FEOSOL 325 MG PO (08:58)
--- NOTE | 2023-10-02 13:46 | CM ---
Addendum entered by Evelyn Church RN 10/02/23 16:53:
Poke with daughter she said she will drive him home today . No needs
Original Note:
Pt speaks Maori. Spoke with Kisha daughter he lives with in a 2 story with 2 steps to enter . He lives on first floor.Alert awake oriented patient who is assisted in all activities of daily living.Offered VN dgt declined at this time.He uses a
cane.
No VN hx / No SNF history
Pharmacy [facility]
PCP DR Lewis
PLAN Home declined VN
--- NOTE | 2023-10-02 14:17 | PTCARENOTE ---
Patient advanced to regular diet. Patient tolerated regular diet for late lunch.
[2023-10-02 15:00] VITALS: BP 102/56
--- NOTE | 2023-10-02 15:36 | W.PN.HOSP.TC ---
Addendum entered and electronically signed by Keyonna Houston MD, Resident 10/03/23 15:28:
failure to thrive -
Severe malnutrition, chronic secondary to mesenteric ischemia/abdominal pain and aorto celiac bypass graft.
Addendum entered and electronically signed by Benton Huynh MD 10/02/23 17:35:
Patient seen and examined.
Discussed with resident.
Patient interviewed with the help of historic interpreter
Impression:
Presentation with dark stools.
Initial concern for gastrointestinal hemorrhage.
History of aortic celiac artery bypass.
Unintentional weight loss with cachexia BMI 15
COPD without exacerbation
Plan.
No clinical evidence of acute gastrointestinal hemorrhage
Hemoglobin remained stable.
Iron studies within normal limits.
CTA with patent bypass
Recent GI workup including EGD June 2022 reviewed with no concerning findings
Colonoscopy 2018 with polyps.
Discussed with gastroenterology
Will advance diet and discharge home.
Follow-up with gastroenterology as outpatient
Failure to thrive including loss of weight with cachexia BMI 15
Likely multifactorial.
Recommended diet supplements.
Patient does have a chronic abdominal pain, although again with no vascular abnormality on imaging as well as recent GI workup.
Original Note:
Today's Communication/Plan
-
Regular diet.
If able to tolerate-plan for discharge.
Assessment / Plan
Assessment / Plan
Assessment-
72-year-old male with PMHx significant for COPD, hyperlipidemia, GERD, aortoceliac artery bypass, hernia repair, smoking presents to the ER for evaluation of black stools-and failure to thrive.
Plan-
GI bleed-
Hemoglobin stable at 13.
Goal hemoglobin greater than 7.
GI on board-CT angio-patent aortoceliac artery bypass graft.
Abdominal [id number]-egb-[id number] normal limits. Diet advanced to regular diet.
IV PPI twice a day.
IV fluids maintenance.
Failure to thrive-
Likely multifactorial-GI bleeding/COPD/edentulous/history of celiac artery disease-s/p aortoceliac artery bypass.
GI on board to evaluate further.
Current body weight-42.4 kgs.
COPD-
Not in acute exacerbation.
Continue home medications for
Hyperlipidemia
Continue statin
GERD/IBS
Continue PPI
BPH
Continue Flomax
DVT prophylaxis
Continue SCD.
CODE STATUS
Full code
Anticipated Discharge: Today
Subjective/Interval History
-
Date of Service: October 02, 2023
No complaints today. Bowel movements are softer and more light in color.
Objective Data
-
Labs:
Laboratory Results
10/02/23
06:13
WBC 2.2 L*
Hgb 12.9 L
Hct 37.6 L
Plt Count 209
Sodium 138
Potassium 4.1
Chloride 106
Carbon Dioxide 24
BUN 16
Creatinine 0.6 L
Glucose 75
Calcium 8.8
Vital Signs:
Vital Signs
Temp Pulse Resp BP Pulse Ox
97.6 F 97 16 95/63 96
10/02/23 07:00 10/02/23 07:00 10/02/23 07:00 10/02/23 07:00 10/02/23 11:41
I&O
10/01/23 10/02/23 10/03/23
06:59 06:59 06:59
Intake Total 0 / 0 240 / 240
Balance 0 / 0 240 / 240
Review of Systems
-
History Source: Patient
Constitutional: Reports No Appetite and Fatigue
EENT: Reports No Symptoms Reported
Respiratory: Reports No Symptoms
Cardiac: Reports No Symptoms
Abdomen/GI: Reports Abdominal Pain and Anorexia
Genitourinary: Reports No Symptoms
Musculoskeletal: Reports No Symptoms
Skin: Reports No Symptoms
Neuro: Reports No Symptoms
Hematologic / Lymphatic: Reports No Symptoms
Allergy / Immunology: Reports No Symptoms
Physical Exam
-
General: Cachectic
HEENT: Normocephalic, Atraumatic, Moist Mucous Membranes and Anicteric
Respiratory: Clear to Auscultation (Wheezes, rales, rhonchi.)
Cardiac: Regular Rhythm, S1/S2 and Other (Murmurs, rubs, gallops)
GI: Soft, Nontender, Normal Bowel Sounds, Flat and Other (Visible abdominal aortic pulsations below the sternum through the skin.)
Genito-urinary: No Costovertebral Tender
Musculoskeletal: No Clubbing, No Cyanosis and No Edema
Neuro: AO x 3
Psych: Calm
--- NOTE | 2023-10-02 15:57 | W.DS.TRANS ---
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
-
Discharge Instructions:
Discharge Diagnosis/Procedures Questionable rectal bleeding, secondary to iron
and aspirin.
Diet No restrictions
Additional Diets Add Ensure twice daily.
Activity No restrictions
Driving Restrictions As prior to admission
Bathing Restrictions None
Blood Work CBC in 1 week
Instructions: Constipation, Adult (DC)
Bloody Stools, Adult (DC)
Abdominal Pain
Stand-Alone Forms:
Changes to Home Medications: Yes
Discharge Medications:
DC Medications w/original date entered in [employer]
cyanocobalamin (vitamin B-12) 1,000 mcg tablet 1,000 mcg PO DAILY Supplement 04/23/21
ezetimibe 10 mg tablet 10 mg PO DAILY High Cholesterol 04/23/21
albuterol sulfate 2.5 mg/3 mL (0.083 %) solution for nebulization 2.5 mg inhalation R Q4HPRN PRN sob 09/26/21
albuterol sulfate 90 mcg/actuation aerosol inhaler (Proventil HFA) 1 puff inhalation R Q4HPRN PRN shortness of breath 06/16/22
cholecalciferol (vitamin D3) 50 mcg (2,000 unit) capsule (Vitamin D3) 50 mcg PO DAILY Supplement 06/16/22
vitamin A 2,400 mcg capsule 800 mcg PO DAILY Supplement 06/16/22
sennosides 8.6 mg-docusate sodium 50 mg tablet (Senna Plus) 1 tab PO BID 30 days #60 tabs 06/21/22
tamsulosin 0.4 mg capsule 0.4 mg PO HS 30 days #30 caps 06/21/22
ascorbic acid (vitamin C) 500 mg tablet (Vitamin C) 500 mg PO DAILY Supplement 09/30/23
ibuprofen 200 mg tablet (Advil) 400 mg PO Q8HPRN PRN mild pain 09/30/23
rosuvastatin 20 mg tablet 20 mg PO DAILY High Cholesterol 09/30/23
vitamin E 268 mg (400 unit) capsule 268 mg PO DAILY Supplement 09/30/23
zinc sulfate 50 mg zinc (220 mg) capsule 50 mg PO DAILY Supplement 09/30/23
food supplemt, lactose-reduced 0.05 gram-1.5 kcal/mL oral liquid (Ensure Plus) 237 ea PO ONCE #5,688 mL 10/02/23
Home Medication Changes
Stop Aspirin and Iron medications.
Add ensure plus dietary supplementation once a day.
Pending Results: No
--- NOTE | 2023-10-02 16:00 | W.DCSUMMARY ---
Documented by User: Keyonna Houston MD, Resident 10/02/23 16:12
Discharge Summary
Discharge Data
Date of Admission: 09/30/23
Date of Discharge: 10/02/23
-
Pending Results: No
Hospital Course
Assessment -
72-year-old male with PMHx significant for COPD, hyperlipidemia, GERD, aortoceliac artery bypass, hernia repair, smoking presents to the ER for evaluation of black stools-and failure to thrive.
Impression-
Suspected GI bleed-with no active evidence for bleeding.
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
COPD
hyperlipidemia
GERD
aortoceliac artery bypass
hernia repair
smoking
Hospital course-
During his 2-day hospital course, patient was initially kept n.p.o. and a GI consult was called and to assess for GI bleed. His hemoglobin remained stable at 13 he was given IV PPI twice a day and IV maintenance fluids while his aspirin, ibuprofen
and iron supplementation is kept on hold. GI ordered a CT angiogram, abdominal x-ray-both of which demonstrated no evidence for acute abdominal disease process. His diet was advanced to regular in the a.m. today, and patient was able to pass soft
bowel movements that are normal in color.
During his admission he was found to have leukopenia which was evident in his past admissions as well.
For his home conditions -COPD, hyperlipidemia, GERD -his home medication regimen is continued.
For DVT prophylaxis-patient was on sequential compression device.
Discharge home with [id number], hematology within 1 to 2 weeks of discharge along with a repeat CBC within 1 week
Investigations-
Abdominal x-ray-09/30
Impression-
Nonspecific intestinal bowel gas pattern, small volume scattered colonic stool.
CT abdomen/pelvis angio W/W IV contrast-09/30
Impression-
Patent celiac artery bypass graft, no gross findings to suggest intestinal pneumatosis, enlarged prostrate.
Prior GI Procedures:
06/2022 EGD: Dr Torres - Small hiatal hernia.
- Erythematous mucosa in the gastric body and antrum.
Biopsied. Retained pill fragments.
- Normal examined duodenum. Biopsied.
- Several biopsies were obtained in the middle third
of the esophagus.
02/2019 Colonoscopy:
The perianal and digital rectal examinations were normal.
A 4 mm polyp was found in the transverse colon. The polyp was sessile.
The polyp was removed with a jumbo cold forceps. Resection and retrieval
were complete. Estimated blood loss was minimal.
The exam was otherwise normal throughout the examined colon.
The terminal ileum appeared normal.
Discharge Plan
-
Patient Disposition: Home (Routine Discharge)
Discharge Diagnosis/Procedures: Questionable rectal bleeding, secondary to iron and aspirin.
Condition: Good
Diet: No restrictions
Additional Diets: Add Ensure twice daily.
Activity: No restrictions
Driving Restrictions: As prior to admission
Bathing Restrictions: None
Blood Work: CBC in 1 week
Activity Restrictions/Additional Instructions:
Follow up with hotel houseman in 1 week.
Follow up with Hematology/oncology for leukopenia. in 1-2 weeks.
Instructions: Constipation, Adult (DC), Bloody Stools, Adult (DC), Abdominal Pain
Referrals:
Gianluca Lewis DO [Family Provider] -
Prescriptions:
New
Ensure Plus 0.05 gram- 1.5 kcal/mL liquid
237 ea PO ONCE Qty: 5688 0RF
Continued
cyanocobalamin (vitamin B-12) 1,000 MCG tablet
1,000 mcg PO DAILY
ezetimibe 10 MG tablet
10 mg PO DAILY
albuterol sulfate 2.5 MG/3 ML solution for nebulization
2.5 mg inhalation R Q4HPRN PRN (Reason: sob)
albuterol sulfate [Proventil HFA] 90 MCG/PUFF HFA aerosol inhaler
1 puff inhalation R Q4HPRN PRN (Reason: shortness of breath)
vitamin A 2,400 mcg Capsule
800 mcg PO DAILY
cholecalciferol (vitamin D3) [Vitamin D3] 50 mcg (2,000 unit) Capsule
50 mcg PO DAILY
sennosides-docusate sodium [Senna Plus] 8.6-50 mg Tablet
1 tab PO BID 30 Days Qty: 60 0RF
tamsulosin 0.4 mg Capsule
0.4 mg PO HS 30 Days Qty: 30 0RF
ascorbic acid (vitamin C) [Vitamin C] 500 mg Tablet
500 mg PO DAILY
vitamin E 268 mg (400 unit) Capsule
268 mg PO DAILY
zinc sulfate 50 mg zinc (220 mg) Capsule
50 mg PO DAILY
rosuvastatin 20 mg Tablet
20 mg PO DAILY
Held
ibuprofen [Advil] 200 mg Tablet
400 mg PO Q8HPRN PRN (Reason: mild pain)
Hold Instructions: Resume on 10/05/23. Once resumed, to be taken only with food. Taking it on empty stomach can cause GI bleeding.
Discontinued
ferrous sulfate [FeroSul] 325 mg (65 mg iron) Tablet
325 mg PO DAILY 30 Days Qty: 30 0RF
aspirin 81 mg Tablet,Delayed Release (Dr/Ec)
81 mg PO DAILY
Discharge Orders:
Discharge Patient (As Directed); Ordered 10/02/23
Ordered By: Keyonna Houston
Discharge Date and Time
Discharge Date/Time: 10/02/23 16:54
Print Language: COLOMBIAN

Documented by User: Benton Huynh MD 10/02/23 17:31
Discharge Summary
Discharge Data
Date of Admission: 09/30/23
Date of Discharge: 10/02/23
Discharge Plan
-
Patient Disposition: Home (Routine Discharge)
Discharge Diagnosis/Procedures: Questionable rectal bleeding, secondary to iron and aspirin.
Condition: Good
Diet: No restrictions
Additional Diets: Add Ensure twice daily.
Activity: No restrictions
Driving Restrictions: As prior to admission
Bathing Restrictions: None
Blood Work: CBC in 1 week
Activity Restrictions/Additional Instructions:
Follow up with hotel houseman in 1 week.
Follow up with Hematology/oncology for leukopenia. in 1-2 weeks.
Instructions: Constipation, Adult (DC), Bloody Stools, Adult (DC), Abdominal Pain
Referrals:
Gianluca Lewis DO [Family Provider] -
Prescriptions:
New
Ensure Plus 0.05 gram- 1.5 kcal/mL liquid
237 ea PO ONCE Qty: 5688 0RF
Continued
cyanocobalamin (vitamin B-12) 1,000 MCG tablet
1,000 mcg PO DAILY
ezetimibe 10 MG tablet
10 mg PO DAILY
albuterol sulfate 2.5 MG/3 ML solution for nebulization
2.5 mg inhalation R Q4HPRN PRN (Reason: sob)
albuterol sulfate [Proventil HFA] 90 MCG/PUFF HFA aerosol inhaler
1 puff inhalation R Q4HPRN PRN (Reason: shortness of breath)
vitamin A 2,400 mcg Capsule
800 mcg PO DAILY
cholecalciferol (vitamin D3) [Vitamin D3] 50 mcg (2,000 unit) Capsule
50 mcg PO DAILY
sennosides-docusate sodium [Senna Plus] 8.6-50 mg Tablet
1 tab PO BID 30 Days Qty: 60 0RF
tamsulosin 0.4 mg Capsule
0.4 mg PO HS 30 Days Qty: 30 0RF
ascorbic acid (vitamin C) [Vitamin C] 500 mg Tablet
500 mg PO DAILY
vitamin E 268 mg (400 unit) Capsule
268 mg PO DAILY
zinc sulfate 50 mg zinc (220 mg) Capsule
50 mg PO DAILY
rosuvastatin 20 mg Tablet
20 mg PO DAILY
Held
ibuprofen [Advil] 200 mg Tablet
400 mg PO Q8HPRN PRN (Reason: mild pain)
Hold Instructions: Resume on 10/05/23. Once resumed, to be taken only with food. Taking it on empty stomach can cause GI bleeding.
Discontinued
ferrous sulfate [FeroSul] 325 mg (65 mg iron) Tablet
325 mg PO DAILY 30 Days Qty: 30 0RF
aspirin 81 mg Tablet,Delayed Release (Dr/Ec)
81 mg PO DAILY
Discharge Orders:
Discharge Patient (As Directed); Ordered 10/02/23
Ordered By: Keyonna Houston
Discharge Date and Time
Discharge Date/Time: 10/02/23 16:54
Print Language: COLOMBI[place]
--- NOTE | 2023-10-02 16:31 | PTCARENOTE ---
Discharge instructions reviewed with patient and daughter who is bilingual. Both verbalize understanding of all discharge instructions and deny questions at this time. Peripheral IVs removed from left and right arm. Copy of discharge instructions
provided.
--- NOTE | 2023-10-03 10:42 | PN.CDI ---
CDI
- -
CDI:
Physician Documentation Request
Admit Date: 09/30/23 18:33
Dear Doctor Amina,
Please review the following and provide your response in the progress notes.
Clinical Indicators:
Pt admitted with Initial concern for GI bleed/ Melena/Dark stools
Documented in the record is BMI 15, Cachexia and ' Wt loss of 20lbs in past year.'
Nutrition consult 09/30, ' CBW: 93 lb 8 oz BMI 15 underweight range 09/30. Per GI pt lost 20lb over the past year, however review of records reveals pt weighed 105 lb 2.568 oz 10/04/22 reflective of 11.4% weight loss x 1 year not significant. On
admission, daughter reported a 10lb weight loss over the last few months, reflective of 9.7% weight loss x ~3 months significant. Will monitor.NFPE: severe muscle and fat loss of the temples, clavicles, orbitals, ribs noted....Per ASPEN/AND
guidelines, pt meets for severe malnutrition in the context of chronic illness as evidenced by 9.7% weight loss x ~3 months, <75% intake est needs x > 3 months, severe muscle/fat loss.'
Based on the information, which of the following most accurately represents the patient's nutritional status?
Severe Protein Calorie Malnutrition
Other (please specify
[place] Criteria (ACP Hospitalist 2017)
2 or more criteria must be present for either
non severe or severe malnutrition
Note that the criteria differs related to the
presence of an acute or chronic illness
Acute Illness Chronic Illness
Energy Intake Non Severe: <75% for >7 days Non Severe: <75% for >1 month
Severe: <50% for >5 days Severe: <75% for >1 month
Weight Loss Non Severe: 1-2% over 1 week Non Severe: 5% over 1 month
5% over 1 month 7.5% over 3 months
7.5% over 3 months 10% over 6 months
1 year N/A 20% over 1 year
Severe: >2% over 1 week Severe: >5% over 1 month
>5% over 1 month >7.5% over 3 months
>7.5% over 3 months >10% over 6 months
1 year N/A >20% over 1 year
Body Fat Non Severe: Mild Decrease Non Severe: Mild Loss
Severe: Moderate Decrease Severe: Severe Loss
Muscle Mass Non Severe: Mild Decrease Non Severe: Mild Loss
Severe: Moderate Decrease Severe: Severe Loss
Fluid Accumulation Non Severe: Mild Accumulation Non Severe: Mild Accumulation
Severe: Moderate to severe Severe: Moderate to severe
accumulation accumulation
Reduced Electrical Technician Strength Non Severe: N/A Non Severe: N/A
Severe: Measurably reduced Severe: Measurably reduced
Use of terms such as suspected, likely, concern for, or probable (associated with a specific diagnosis that is being evaluated, monitored, or treated as if it exists) are acceptable and can be coded in the inpatient setting, when documented at the
time of discharge.
Thank you,
Jaz Olivas RN
CDI Specialist
[facility]
Please use your independent medical judgment in providing your response.
--- NOTE | 2023-10-03 10:51 | PN.CDI ---
CDI
- -
CDI:
Physician Documentation Request
Admit Date: 09/30/23 18:33
Dear Doctor Amina,
Please review the following and provide your response in the progress notes.
Clinical Indicators:
Pt admitted with Initial concern for GI bleed/ Melena/Dark stools
Documented in the record is BMI 15, Cachexia and ' Wt loss of 20lbs in past year.'
Nutrition consult 09/30, ' CBW: 93 lb 8 oz BMI 15 underweight range 09/30. Per GI pt lost 20lb over the past year, however review of records reveals pt weighed 105 lb 2.568 oz 10/04/22 reflective of 11.4% weight loss x 1 year not significant. On
admission, daughter reported a 10lb weight loss over the last few months, reflective of 9.7% weight loss x ~3 months significant. Will monitor.NFPE: severe muscle and fat loss of the temples, clavicles, orbitals, ribs noted....Per ASPEN/AND
guidelines, pt meets for severe malnutrition in the context of chronic illness as evidenced by 9.7% weight loss x ~3 months, <75% intake est needs x > 3 months, severe muscle/fat loss.'
Based on the information, which of the following most accurately represents the patient's nutritional status?
Severe Malnutrition
Other (please specify
[place] Criteria (ACP Hospitalist 2017)
2 or more criteria must be present for either
non severe or severe malnutrition
Note that the criteria differs related to the
presence of an acute or chronic illness
Acute Illness Chronic Illness
Energy Intake Non Severe: <75% for >7 days Non Severe: <75% for >1 month
Severe: <50% for >5 days Severe: <75% for >1 month
Weight Loss Non Severe: 1-2% over 1 week Non Severe: 5% over 1 month
5% over 1 month 7.5% over 3 months
7.5% over 3 months 10% over 6 months
1 year N/A 20% over 1 year
Severe: >2% over 1 week Severe: >5% over 1 month
>5% over 1 month >7.5% over 3 months
>7.5% over 3 months >10% over 6 months
1 year N/A >20% over 1 year
Body Fat Non Severe: Mild Decrease Non Severe: Mild Loss
Severe: Moderate Decrease Severe: Severe Loss
Muscle Mass Non Severe: Mild Decrease Non Severe: Mild Loss
Severe: Moderate Decrease Severe: Severe Loss
Fluid Accumulation Non Severe: Mild Accumulation Non Severe: Mild Accumulation
Severe: Moderate to severe Severe: Moderate to severe
accumulation accumulation
Reduced Roll Clamp Operator Strength Non Severe: N/A Non Severe: N/A
Severe: Measurably reduced Severe: Measurably reduced
Use of terms such as suspected, likely, concern for, or probable (associated with a specific diagnosis that is being evaluated, monitored, or treated as if it exists) are acceptable and can be coded in the inpatient setting, when documented at the
time of discharge.
Thank you,
Jaz Olivas RN
CDI Specialist
[facility]
Please use your independent medical judgment in providing your response.
== END 2023-10-02 16:54 | disposition home or self-care (01) | DRG 377 ==
LOC: 4 EAST ACU 18:33
PROVIDERS: Registered Nurse; Student in an Organized Health Care Education/Training Program; ADMITTING PHYSICIAN Internal Medicine; ATTENDING PHYSICIAN Internal Medicine; CONSULT PHYSICIAN Internal Medicine Gastroenterology; EMERGENCY PHYSICIAN Emergency Medicine; FAMILY PHYSICIAN Family Medicine
DX: K92.2 Gastrointestinal hemorrhage, unspecified (principal); E43 Unspecified severe protein-calorie malnutrition; Z68.1 Body mass index [BMI] 19.9 or less, adult; J44.9 Chronic obstructive pulmonary disease, unspecified; E78.00 Pure hypercholesterolemia, unspecified; K21.9 Gastro-esophageal reflux disease without esophagitis; K22.70 Barrett's esophagus without dysplasia; K44.9 Diaphragmatic hernia without obstruction or gangrene; D72.819 Decreased white blood cell count, unspecified; R62.7 Adult failure to thrive; R19.5 Other fecal abnormalities; D64.9 Anemia, unspecified; I25.10 Atherosclerotic heart disease of native coronary artery without angina pectoris; K58.9 Irritable bowel syndrome, unspecified; N40.0 Benign prostatic hyperplasia without lower urinary tract symptoms; Z60.3 Acculturation difficulty; Z87.891 Personal history of nicotine dependence; Z86.16 Personal history of COVID-19; Z87.19 Personal history of other diseases of the digestive system; Z86.010 Personal history of colon polyps
CPT/HCPCS: 74018; 74174; 80048; 80053; 82150; 82728; 83540; 83550; 83605; 85014; 85018; 85025; 85027; 85610; 85730; 86803; 86850; 86900; 86901; 93005; 96374; 99285; Q9967

== ENCOUNTER 2023-11-24 22:23 | Emergency (ER) | payer MEDICARE, OTHER, SELFPAY ==
[2023-11-24 22:30] VITALS: BP 113/87
[2023-11-24 22:51] VITALS: BP 139/96
[2023-11-24 23:00] VITALS: BP 152/91
[2023-11-24] MEDS: NSS 500 IV (23:46)
[2023-11-24 23:47] LABS: ALT (SGPT) 23 U/L (0-50); AST (SGOT) 38 U/L (17-59); Albumin 4.4 g/dl (3.5-5.0); Alkaline Phosphatase 60 U/L (38-126); Blood Urea Nitrogen 11 mg/dl (9-20); Calcium 9.2 mg/dl (8.4-10.2); Carbon Dioxide 28 mmol/L (22-30); Chloride 104 mmol/L (98-107); Glucose 85 mg/dl (70-99); Potassium 3.8 mmol/L (3.5-5.1); Sodium 140 mmol/L (135-145); Total Bilirubin 0.5 mg/dl (0.2-1.3); Total Protein 7.1 g/dl (6.3-8.2); Troponin I < 0.012 ng/ml; eGFR > 60.00
[2023-11-24] MEDS: PROTONIX IV 40 MG IV (23:47)
[2023-11-24] MEDS: TYLENOL 650 MG PO (23:47)
[2023-11-24 23:49] LABS: Hemoglobin 13.7 g/dL (13.0-18.0); Mean Corp Hgb Conc. 34.3 g/dL (33.0-37.0); Mean Corpuscular Hgb 30.2 pg (27.0-31.0); Mean Corpuscular Volume 88.3 fL (80.0-94.0); Mean Platelet Volume 10.6 fL (7.4-10.4); Platelet Count 186 10^3/uL (130-400); Red Blood Cell Count 4.53 10^6/uL (4.70-6.10); Red Cell Dist. Width 13.2 % (11.5-14.5); White Blood Cell Count 2.4 10^3/uL (4.8-10.8)
[2023-11-25 00:04] LABS: Lipase 364 U/L (23-300)
[2023-11-25 00:12] LABS: % Basophils 3.4 % (0-2); % Eosinophils 2.1 % (0-6); % Lymphocytes 54.4 % (20.5-51.1); % Monocytes 8.9 % (1.7-9.3); % Neutrophils 31.2 % (42.2-75.2); Absolute Basophils 0.1 10^3/uL (0-0.2); Absolute Eosinophils 0.1 10^3/uL (0-0.7); Absolute Lymphocytes 1.3 10^3/uL (1.2-3.4); Absolute Monocytes 0.2 10^3/uL (0.1-0.6); Absolute Neutrophils 0.7 10^3/uL (1.4-6.5); Nucleated Red Blood Cells % 0 % (-)
--- NOTE | 2023-11-25 00:12 | ED.GENMED ---
History of Present Illness
General
Chief Complaint: Breathing Problem
Source: patient
Exam Limitations: none
Time Seen by Provider: 11/24/23 22:56
Nursing documentation reviewed up to this point in time: agreed with
History of Present Illness
History of Present Illness:
Patient with history of COPD, presents to ED secondary to persistent rib pain along with abdominal pain, which has been evaluated in the past, including admission to the hospital 2 months ago. Denies fever or chills. Denies nausea, vomiting, or
diarrhea. Denies trauma. Denies headache. Denies dizziness. Patient reports chronic cough. Patient has been evaluated multiple times for similar complaint, and has been provided with antibiotics, steroids, as well as inhaler, which patient has
been using intermittently. Patient states that he has trouble removing phlegm, more from right side of his lung than left lung. 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
Past History
Past History
ED Past Medical History: COPD, GERD and Hypercholesterolemia
ED Past Surgical History: Appendectomy and Other (hernia repair, aortoiliac bypass)
Social History
Tobacco: Former smoker (2 packs per day until November 2013)
Alcohol: None
Drug: None
Personal:
Living: with family (lives with daughter)
Employment: Not employed
Family History
Family History: Other (Noncontributory)
Review of Systems
Review of Systems
Allergies reviewed?: Yes
All Other Systems: ROS reviewed and negative except as documented in HPI and ROS
Constitutional: Reports no symptoms
EENT: Reports no symptoms
Respiratory: Reports cough and trouble breathing
Cardiac: Reports chest pain
ABD/GI: Reports abdominal pain; Denies nausea, vomiting or diarrhea
Musculoskeletal: Reports other (rib pain)
Skin: Reports no symptoms
Neurological: Reports no symptoms
Phy Exam
Physical Exam
Physical Exam:
Physical Exam
General: no apparent distress, not acutely ill. afebrile
Head: nc/at. eomi
Neck: supple. no meningeal signs.
Heart: s1/s2 regular rate and rhythm, no murmur. equal radial pulses.
Lungs: no acute respiratory distress. clear bilaterally. mild diffuse anterior rib tenderness to palpation, without deformity.
Abdomen: normal bowel sounds. not tender. no distention
Neuro: alert and oriented. no focal neurological deficits
Skin: no rash
Psychiatric: well kept. interactive and cooperative
Extremities: no edema. no calf tenderness.
Scores
Heart Failure Risk
Heart Failure Risk Score: Not Applicable
Course
Orders/Labs/Results
Orders:
Orders
11/24/23 22:35
Electrocardiogram (*1) Urgent
Reason for Study: Chest Pain
11/24/23 22:36
EKG- Treatment ONCE
11/24/23 22:57
CR Chest - 2 Views Urgent
Comment:
Reason For Exam: cp/sob
11/24/23 23:15
Complete Blood Count/With Diff Urgent
Comprehensive Metabolic Panel Urgent
Lipase Urgent
Comment: ADDED
Troponin I Urgent
11/24/23 23:25
Add On- LAB Urgent
Tests Added?: lipase
0.9% Sodium Chloride 500 ml [Nss] 500 ml IV BOLUS
Pantoprazole [Protonix IV] 40 mg IV NOW STA
11/24/23 23:26
Acetaminophen [Tylenol] 650 mg PO NOW STA
Abnormal Lab Results
11/24/23
23:15
WBC 2.4 L* 10^3/uL
(4.8-10.8)
RBC 4.53 L 10^6/uL
(4.70-6.10)
MPV 10.6 H fL
(7.4-10.4)
Absolute Neuts (auto) 0.7 L* 10^3/uL
(1.4-6.5)
Neutrophils % 31.2 L %
(42.2-75.2)
Lymphocytes % 54.4 H %
(20.5-51.1)
Basophils % 3.4 H %
(0-2)
Lipase 364 H U/L
(23-300)
11/24/23 23:15
11/24/23 23:15
Vital Signs
Initial and Last Documented VS:
Initial Vital Signs
Temp Pulse Resp BP Pulse Ox
97.8 F 84 18 113/87 99
11/24/23 22:30 11/24/23 22:30 11/24/23 22:30 11/24/23 22:30 11/24/23 22:30
Last Documented Vital Signs
Temp Pulse Resp BP Pulse Ox
97.6 F 79 18 150/76 98
11/25/23 01:25 11/25/23 01:25 11/25/23 01:25 11/25/23 01:25 11/25/23 01:25
MDM/Problems Addressed
MDM/Problems Addressed:
Patient with an unremarkable workup in ED, including blood work, which revealed leukopenia, which has been chronic. Will advise repeat blood work in 1-2 wks as outpatient. Patient otherwise afebrile, hemodynamically stable, and is without any acute
respiratory distress. Patient will be discharged home in stable condition, to the care of his son, with recommendation to continue to follow-up with his phosphoric acid supervisor for evaluation. In the meantime, in light of patient's presenting symptoms,
specifically increased phlegm production, patient will be recommended to try [id number] Mucinex for symptomatic relief.
*Critical Care Note
Total Time (30-74mins, 75-104mins- exclusive of procedures): Not Applicable
ED Attending Note
-
Portions of this chart may have been created with voice recognition software.� Occasional wrong word or��sound alike� substitutions may have occurred due to the inherent limitations of voice recognition software.
Discharge Plan
Departure
Patient Disposition: Home (Routine Discharge)
Date of Disposition: 11/25/23
Time of Disposition: 01:08
Patient with high blood pressure during this ER visit?: Yes
Discharge Problem:
COPD (chronic obstructive pulmonary disease), Costochondritis, Gastritis
Instructions: Chronic obstructive pulmonary disease (COPD), [place] Diet, Gastritis (DC)
Prescriptions:
New
guaifenesin [Mucinex] 600 mg tablet extended release 12hr
600 mg PO Q12H Qty: 30 0RF
No Action
cyanocobalamin (vitamin B-12) 1,000 MCG tablet
1,000 mcg PO DAILY
ezetimibe 10 MG tablet
10 mg PO DAILY
albuterol sulfate 2.5 MG/3 ML solution for nebulization
2.5 mg inhalation R Q4HPRN PRN (Reason: sob)
albuterol sulfate [Proventil HFA] 90 MCG/PUFF HFA aerosol inhaler
1 puff inhalation R Q4HPRN PRN (Reason: shortness of breath)
vitamin A 2,400 mcg Capsule
800 mcg PO DAILY
cholecalciferol (vitamin D3) [Vitamin D3] 50 mcg (2,000 unit) Capsule
50 mcg PO DAILY
sennosides-docusate sodium [Senna Plus] 8.6-50 mg Tablet
1 tab PO BID 30 Days Qty: 60 0RF
tamsulosin 0.4 mg Capsule
0.4 mg PO HS 30 Days Qty: 30 0RF
ascorbic acid (vitamin C) [Vitamin C] 500 mg Tablet
500 mg PO DAILY
vitamin E 268 mg (400 unit) Capsule
268 mg PO DAILY
zinc sulfate 50 mg zinc (220 mg) Capsule
50 mg PO DAILY
ibuprofen [Advil] 200 mg Tablet
400 mg PO Q8HPRN PRN (Reason: mild pain)
rosuvastatin 20 mg Tablet
20 mg PO DAILY
Ensure Plus 0.05 gram- 1.5 kcal/mL liquid
237 ea PO ONCE Qty: 5688 0RF
Referrals:
UNKNOWN - PT NOT,INTERVIEWE [Family Provider] -
Activity Restrictions/Additional Instructions:
As discussed, please follow-up with your phosphoric acid supervisor for further evaluation treatment. Please discuss with your phosphoric acid supervisor regarding potential side effects you are having, especially with use of steroids and stomach pain. In the meantime, you
may try [id number] Mucinex, twice daily, for symptomatic relief.
Interventions
Interventions:
*Risk Screen - Suicide Last Done: 11/24/23 22:30
*General Assessment Last Done: 11/24/23 22:30
*Neglect/Abuse Screening Last Done: 11/24/23 22:30
ED- Fall Risk Assessment Last Done: 11/25/23 01:25
*Nursing Disposition Last Done: 11/25/23 01:25
ED- Cardiac Assessment Last Done: 11/24/23 23:29
ED- Pulmonary Assessment Last Done: 11/24/23 23:29
Discharge Date and Time
Discharge Date/Time: 11/25/23 01:41
Print Language: MAORI
[2023-11-25 01:00] VITALS: BP 150/76
[2023-11-25 01:25] VITALS: BP 150/76
== END 2023-11-25 01:41 | disposition home or self-care (01) ==
LOC: EMR 22:23
PROVIDERS: Emergency Medicine; EMERGENCY PHYSICIAN Emergency Medicine
DX: J44.9 Chronic obstructive pulmonary disease, unspecified (principal); M94.0 Chondrocostal junction syndrome [Tietze]; K29.70 Gastritis, unspecified, without bleeding; K21.9 Gastro-esophageal reflux disease without esophagitis; E78.00 Pure hypercholesterolemia, unspecified; Z87.891 Personal history of nicotine dependence; Z90.49 Acquired absence of other specified parts of digestive tract
CPT/HCPCS: 99283; 96374; 71046; 80053; 83690; 84484; 85025; 93005

== ENCOUNTER 2024-04-16 15:03 | Emergency (ER) | payer MEDICARE, OTHER, SELFPAY ==
[2024-04-16 15:09] VITALS: BP 134/77
[2024-04-16 15:57] LABS: % Basophils 0.7 % (0-2); % Immature Granulocytes 0.3 % (0-0.5); % Lymphocytes 19.6 % (20.5-51.1); % Monocytes 3.4 % (1.7-9.3); Absolute Lymphocytes 0.6 10^3/uL (1.2-3.4); Absolute Monocytes 0.1 10^3/uL (0.1-0.6); Absolute Neutrophils 2.2 10^3/uL (1.4-6.5); Hematocrit 45.7 % (39.0-52.0); Hemoglobin 14.6 g/dL (13.0-18.0); Mean Corp Hgb Conc. 31.9 g/dL (33.0-37.0); Mean Corpuscular Hgb 29.3 pg (27.0-31.0); Mean Corpuscular Volume 91.8 fL (80.0-94.0); Mean Platelet Volume 10.9 fL (7.4-10.4); Nucleated Red Blood Cells % 0 % (-); Platelet Count 194 10^3/uL (130-400); Red Blood Cell Count 4.98 10^6/uL (4.70-6.10); Red Cell Dist. Width 13.3 % (11.5-14.5); White Blood Cell Count 2.9 10^3/uL (4.8-10.8)
[2024-04-16 16:17] LABS: ALT (SGPT) 21 U/L (0-50); AST (SGOT) 31 U/L (17-59); Albumin 4.4 g/dl (3.5-5.0); Alkaline Phosphatase 80 U/L (38-126); Blood Urea Nitrogen 15 mg/dl (9-20); Calcium 9.4 mg/dl (8.4-10.2); Carbon Dioxide 27 mmol/L (22-30); Chloride 102 mmol/L (98-107); Glucose 95 mg/dl (70-99); Lipase 304 U/L (23-300); Potassium 4.2 mmol/L (3.5-5.1); Sodium 138 mmol/L (135-145); Total Bilirubin 0.9 mg/dl (0.2-1.3); Total Protein 7.2 g/dl (6.3-8.2); eGFR > 60.00
[2024-04-16 16:21] LABS: Troponin I < 0.012 ng/ml
[2024-04-16 17:33] VITALS: BP 136/80
[2024-04-16 18:00] VITALS: BP 126/74
--- NOTE | 2024-04-16 18:05 | ED.GENMED ---
History of Present Illness
General
Chief Complaint: Breathing Problem
Source: patient
Exam Limitations: none
Time Seen by Provider: 04/16/24 17:46
History of Present Illness
History of Present Illness:
73-year-old male with history of aortic celiac artery bypass presents with worsening postprandial abdominal pain over the past month. The pain is in the entire anterior abdomen and occasionally radiates to the back. There is no nausea vomiting.
Does note a cough. The pain is deftly made worse after eating. He has bypass surgery about 5 years ago and was told at 1 point that the graft that in there may not last more than 5 years. He denies fever close no chills after he eats. He denies
any blood in his stool. He has a history of COPD. No other complaints
Past History
Past History
ED Past Medical History: COPD, GERD and Hypercholesterolemia
ED Past Surgical History: Appendectomy and Other (hernia repair, aortoiliac bypass)
Social History
Tobacco: Former smoker (2 packs per day until November 2013)
Alcohol: None
Drug: None
Personal:
Living: with family (lives with daughter)
Employment: Not employed
Family History
Family History: Other (Noncontributory)
Phy Exam
Physical Exam
Physical Exam:
General: Uncomfortable appearing male no acute respiratory distress
HEENT: Normocephalic atraumatic
Heart: Regular rate and rhythm no murmurs
Lungs: Clear no wheeze
Abdomen soft mild guarding diffuse tenderness nondistended. Normal bowel sounds
Extremities: No cyanosis
Scores
Heart Failure Risk
Heart Failure Risk Score: Not Applicable
Course
Orders/Labs/Results
Orders:
Orders
04/16/24 15:16
Electrocardiogram (*1) Urgent
Reason for Study: Chest Pain
04/16/24 15:17
EKG- Treatment ONCE
04/16/24 15:31
Complete Blood Count/With Diff Urgent
Comprehensive Metabolic Panel Urgent
Lipase Urgent
Troponin I Urgent
04/16/24 17:59
CT Abd/pel W Iv And Oral Contr Urgent
Comment:
Reason For Exam: abdominal pain
Iohexol [Omnipaque] See Protocol PO NOW STA
CR Chest - 2 Views Urgent
Comment:
Reason For Exam: chest pain
04/16/24 18:09
0.9% Sodium Chloride 1000 ml [Nss] 1,000 ml IV BOLUS
HYDROmorphone [Dilaudid] 0.5 mg IV NOW STA
04/16/24 19:06
Lactic Acid Q4H
Comment: CANCEL 2nd LACTIC ACID IF 1st LACTIC ACID IS LESS THAN 2
Abnormal Lab Results
04/16/24
15:31
WBC 2.9 L 10^3/uL
(4.8-10.8)
MCHC 31.9 L g/dL
(33.0-37.0)
MPV 10.9 H fL
(7.4-10.4)
Absolute Lymphs (auto) 0.6 L 10^3/uL
(1.2-3.4)
Neutrophils % 76.0 H %
(42.2-75.2)
Lymphocytes % 19.6 L %
(20.5-51.1)
Lipase 304 H U/L
(23-300)
04/16/24 15:31
04/16/24 15:31
Vital Signs
Initial and Last Documented VS:
Initial Vital Signs
Temp Pulse Resp BP Pulse Ox
98 F 98 26 134/77 97
04/16/24 15:09 04/16/24 15:09 04/16/24 15:09 04/16/24 15:09 04/16/24 15:09
Last Documented Vital Signs
Temp Pulse Resp BP Pulse Ox
98 F 72 15 135/76 95
04/16/24 15:09 04/16/24 21:00 04/16/24 21:00 04/16/24 21:00 04/16/24 21:00
MDM/Problems Addressed
Differential Diagnosis Includes:
Abdominal pain. Consider viral illness versus bowel obstruction versus colitis. Will check labs. Lactic acid pending. Given history of abdominal surgery will order CT with oral and IV contrast. Patient also notes chest discomfort. Chest x-ray
pending. Patient is chronically leukopenic. Troponin today is undetectable. Lipase without concern.
*Critical Care Note
Total Time (30-74mins, 75-104mins- exclusive of procedures): Not Applicable
Update Note
Update Note:
CT of abdomen with oral and IV contrast negative chest x-ray clear labs reviewed with negative troponin. This is acute on chronic abdominal pain he has been here for several times for this in the past. Recommend follow-up with his doctors. No
indication for admission stable for discharge
ED Attending Note
-
Portions of this chart may have been created with voice recognition software.� Occasional wrong word or��sound alike� substitutions may have occurred due to the inherent limitations of voice recognition software.
Discharge Plan
Departure
Patient Disposition: Home (Routine Discharge)
Date of Disposition: 04/16/24
Time of Disposition: 21:48
Patient with high blood pressure during this ER visit?: No
Discharge Problem:
Abdominal pain
Instructions: Abdominal Pain, Adult ED
Prescriptions:
No Action
cyanocobalamin (vitamin B-12) 1,000 MCG tablet
1,000 mcg PO DAILY
ezetimibe 10 MG tablet
10 mg PO DAILY
albuterol sulfate 2.5 MG/3 ML solution for nebulization
2.5 mg inhalation R Q4HPRN PRN (Reason: sob)
albuterol sulfate [Proventil HFA] 90 MCG/PUFF HFA aerosol inhaler
1 puff inhalation R Q4HPRN PRN (Reason: shortness of breath)
vitamin A 2,400 mcg Capsule
800 mcg PO DAILY
cholecalciferol (vitamin D3) [Vitamin D3] 50 mcg (2,000 unit) Capsule
50 mcg PO DAILY
sennosides-docusate sodium [Senna Plus] 8.6-50 mg Tablet
1 tab PO BID 30 Days Qty: 60 0RF
tamsulosin 0.4 mg Capsule
0.4 mg PO HS 30 Days Qty: 30 0RF
ascorbic acid (vitamin C) [Vitamin C] 500 mg Tablet
500 mg PO DAILY
vitamin E 268 mg (400 unit) Capsule
268 mg PO DAILY
zinc sulfate 50 mg zinc (220 mg) Capsule
50 mg PO DAILY
ibuprofen [Advil] 200 mg Tablet
400 mg PO Q8HPRN PRN (Reason: mild pain)
rosuvastatin 20 mg Tablet
20 mg PO DAILY
Ensure Plus 0.05 gram- 1.5 kcal/mL liquid
237 ea PO ONCE Qty: 5688 0RF
guaifenesin [Mucinex] 600 mg tablet extended release 12hr
600 mg PO Q12H Qty: 30 0RF
Referrals:
Noemi Alejandre MD [Family Provider] -
Activity Restrictions/Additional Instructions:
Continue current medication regimen. Return here if worse otherwise follow-up with your doctors
Interventions
Interventions:
*Risk Screen - Suicide Last Done: 04/16/24 15:09
*General Assessment Last Done: 04/16/24 15:09
*Neglect/Abuse Screening Last Done: 04/16/24 15:09
ED- Cardiac Assessment Last Done: 04/16/24 19:00
ED- Pulmonary Assessment Last Done: 04/16/24 19:00
Discharge Date and Time
Print Language: PASHTO
[2024-04-16 18:54] VITALS: BMI 16.4
[2024-04-16] MEDS: OMNIPAQUE 50 ML PO (19:12)
[2024-04-16] MEDS: NSS 1000 IV (19:13)
[2024-04-16] MEDS: DILAUDID 0.5 MG IV (19:15)
[2024-04-16 19:24] LABS: Lactic Acid 1.6 mmol/L (0.7-2.0)
[2024-04-16 19:31] VITALS: BP 128/98
[2024-04-16 20:00] VITALS: BP 131/74
[2024-04-16 21:00] VITALS: BP 135/76
== END 2024-04-16 22:15 | disposition home or self-care (01) ==
LOC: EMR 15:03
PROVIDERS: Physician Assistant; EMERGENCY PHYSICIAN Emergency Medicine; FAMILY PHYSICIAN Internal Medicine
DX: R10.9 Unspecified abdominal pain (principal); J44.9 Chronic obstructive pulmonary disease, unspecified; Z87.891 Personal history of nicotine dependence
CPT/HCPCS: 99285; 96374; 96361; 71046; 74177; 80053; 83605; 83690; 84484; 85025; 93005; Q9967

== ENCOUNTER → 2024-05-19 15:14 | Outpatient (REF) | payer MEDICARE, OTHER, SELFPAY | LOC: RAD 15:14 | PROVIDERS: ATTENDING PHYSICIAN Surgery Vascular Surgery; FAMILY PHYSICIAN Family Medicine | DX: I77.4 Celiac artery compression syndrome (principal) | CPT/HCPCS: 74174; Q9967 ==

== ENCOUNTER 2024-06-16 21:18 | Emergency (ER) | payer MEDICARE, OTHER, SELFPAY ==
[2024-06-16 21:23] VITALS: BP 142/76
[2024-06-16 21:49] LABS: % Basophils 0.7 % (0-2); % Eosinophils 0.2 % (0-6); % Immature Granulocytes 0.2 % (0-0.5); % Monocytes 3.9 % (1.7-9.3); Absolute Lymphocytes 0.6 10^3/uL (1.2-3.4); Absolute Monocytes 0.2 10^3/uL (0.1-0.6); Absolute Neutrophils 5.3 10^3/uL (1.4-6.5); Hematocrit 46.6 % (39.0-52.0); Hemoglobin 15.6 g/dL (13.0-18.0); Mean Corp Hgb Conc. 33.5 g/dL (33.0-37.0); Mean Corpuscular Volume 89.6 fL (80.0-94.0); Mean Platelet Volume 10.9 fL (7.4-10.4); Nucleated Red Blood Cells % 0 % (-); Platelet Count 161 10^3/uL (130-400); Red Cell Dist. Width 13.1 % (11.5-14.5); White Blood Cell Count 6.1 10^3/uL (4.8-10.8)
[2024-06-16 21:58] LABS: PT 14.5 Sec (11.4-14.6)
[2024-06-16 22:03] LABS: ALT (SGPT) 20 U/L (0-50); AST (SGOT) 31 U/L (17-59); Albumin 4.8 g/dl (3.5-5.0); Alkaline Phosphatase 89 U/L (38-126); Blood Urea Nitrogen 14 mg/dl (9-20); Calcium 9.1 mg/dl (8.4-10.2); Carbon Dioxide 25 mmol/L (22-30); Chloride 101 mmol/L (98-107); Glucose 96 mg/dl (70-99); Potassium 3.5 mmol/L (3.5-5.1); Sodium 138 mmol/L (135-145); Total Protein 7.6 g/dl (6.3-8.2); eGFR > 60.00
[2024-06-16 22:11] LABS: Troponin I < 0.012 ng/ml
[2024-06-16 22:13] VITALS: BP 126/73
--- NOTE | 2024-06-16 22:25 | ED.GENMED ---
History of Present Illness
General
Chief Complaint: Chest Pain
Source: patient, previous radiology exam and previous hospital records
Exam Limitations: other (Patient not answering questions completely from the assembling machine operator)
Time Seen by Provider: 06/16/24 22:07
Nursing documentation reviewed up to this point in time: agreed with
History of Present Illness
History of Present Illness:
73 [place] man, presents for left-sided right greater than left flank pain, point tenderness over his left breast, pain over his right eye headache no fevers, with chest pain shortness of breath, has a history of COPD no longer smoking 2018 had
elective surgery for median arcuate ligament release he has had numerous CAT scans since then
Past History
Past History
ED Past Medical History: COPD, GERD and Hypercholesterolemia
ED Past Surgical History: Appendectomy and Other (hernia repair, aortoiliac bypass)
Social History
Tobacco: Former smoker (2 packs per day until November 2013)
Alcohol: None
Drug: None
Personal:
Living: with family (lives with daughter)
Employment: Not employed
Family History
Family History: Other (Noncontributory)
Review of Systems
Review of Systems
All Other Systems: Not applicable
Constitutional: Denies fever or fatigue
Respiratory: Reports trouble breathing
Cardiac: Reports chest pain; Denies syncope
ABD/GI: Denies abdominal pain or nausea
: Reports flank pain
Musculoskeletal: Reports joint pain, muscle pain and muscle stiffness
Skin: Reports no symptoms
Neurological: Reports headache and weakness
Endocrine: Reports no symptoms
Hematologic/Lymphatic: Reports no symptoms
Phy Exam
Physical Exam
Physical Exam:
Physical Exam
General: 73-year-old male chronically ill-appearing
Neck: No jaundice
Heart: s1/s2 regular rate and rhythm, no murmur. equal radial pulses.
Lungs: no acute respiratory distress. clear bilaterally
Abdomen: Nontender no CVA tender
Neuro: alert and oriented. no focal neurological deficits
Skin: no rash
Psychiatric: well kept. interactive and cooperative
Extremities: no edema.
Scores
Heart Score for Chest Pain Patients
STEMI patient?: No
History: Slightly or Non-Suspicious
ECG: Normal
Age: >/= 65 years
Risk Factors: 1 or 2 Risk Factors
Troponin: </= Normal Limit
Heart Score for Chest Pain Patients: 3
Heart Score Risk: 2.5% MACE over next 6 weeks
Course
Orders/Labs/Results
Orders:
Orders
06/16/24 21:19
Electrocardiogram (*1) Urgent
Reason for Study: Chest Pain
EKG- Treatment ONCE
06/16/24 21:42
Complete Blood Count/With Diff Urgent
Comprehensive Metabolic Panel Urgent
Prothrombin Time Urgent
Troponin I Urgent
06/16/24 22:29
Urinalysis Reflex To Culture Urgent
Date Specimen was Collected: 06/17/24
Time Specimen was Collected: 01:00
06/17/24 00:00
CR Chest - 2 Views Urgent
Reason For Exam: cp
06/17/24 00:14
Bladder Scan- Treatment ONCE
0.9% Sodium Chloride 1000 ml [Nss] 1,000 ml IV BOLUS
06/17/24 01:01
Urine Microscopic Reflex Cult Urgent
Abnormal Lab Results
06/16/24 06/17/24
21:42 01:01
MPV 10.9 H fL
(7.4-10.4)
Absolute Lymphs (auto) 0.6 L 10^3/uL
(1.2-3.4)
Neutrophils % 86.0 H %
(42.2-75.2)
Lymphocytes % 9.0 L %
(20.5-51.1)
Urine Ketones 2+ A
(Negative)
Urine Albumin (Reflex) 1+ A
(Neg - Trace)
06/16/24 21:42
06/16/24 21:42
Vital Signs
Initial and Last Documented VS:
Initial Vital Signs
Temp Pulse Resp BP Pulse Ox
98.7 F 120 20 142/76 97
06/16/24 21:23 06/16/24 21:23 06/16/24 21:23 06/16/24 21:23 06/16/24 21:23
Last Documented Vital Signs
Temp Pulse Resp BP Pulse Ox
98.7 F 88 22 117/66 97
06/16/24 21:23 06/17/24 03:00 06/17/24 03:00 06/17/24 03:00 06/17/24 03:00
*Radiology
Radiology exam reviewed: preliminary read by ED provider
*Pulse Oximetry
Patient hypoxic: no
*EKG
Interpreted by ED Provider?: Yes
Interpretation: abnormal
Comparison EKG: no comparison EKG present
Heart Rate: 78
Rate: normal
Rhythm: sinus
Ischemia: non-specific ST changes
*Honing Machine Set Up Operator Interpretation
Rate: normal
Interpretation: normal
Heart Rate: 78
Rhythm: sinus
*Critical Care Note
Total Time (30-74mins, 75-104mins- exclusive of procedures): Not Applicable
Update Note
Update Note:
Update, etiology of symptoms not entirely clear encompasses multiple body systems she has had numerous CAT scans most recent complaint is decreased urination we will start some saline, check bladder scan
Update urine noted
ED Attending Note
-
Portions of this chart may have been created with voice recognition software.� Occasional wrong word or��sound alike� substitutions may have occurred due to the inherent limitations of voice recognition software.
Discharge Plan
Departure
Patient Disposition: Home (Routine Discharge)
Date of Disposition: 06/17/24
Time of Disposition: 02:57
Patient with high blood pressure during this ER visit?: No
Condition: Good
Discharge Problem:
Chronic flank pain
Instructions: Flank Pain ED
Prescriptions:
No Action
cyanocobalamin (vitamin B-12) 1,000 MCG tablet
1,000 mcg PO DAILY
ezetimibe 10 MG tablet
10 mg PO DAILY
albuterol sulfate 2.5 MG/3 ML solution for nebulization
2.5 mg inhalation R Q4HPRN PRN (Reason: sob)
albuterol sulfate [Proventil HFA] 90 MCG/PUFF HFA aerosol inhaler
1 puff inhalation R Q4HPRN PRN (Reason: shortness of breath)
vitamin A 2,400 mcg Capsule
800 mcg PO DAILY
cholecalciferol (vitamin D3) [Vitamin D3] 50 mcg (2,000 unit) Capsule
50 mcg PO DAILY
sennosides-docusate sodium [Senna Plus] 8.6-50 mg Tablet
1 tab PO BID 30 Days Qty: 60 0RF
tamsulosin 0.4 mg Capsule
0.4 mg PO HS 30 Days Qty: 30 0RF
ascorbic acid (vitamin C) [Vitamin C] 500 mg Tablet
500 mg PO DAILY
vitamin E 268 mg (400 unit) Capsule
268 mg PO DAILY
zinc sulfate 50 mg zinc (220 mg) Capsule
50 mg PO DAILY
ibuprofen [Advil] 200 mg Tablet
400 mg PO Q8HPRN PRN (Reason: mild pain)
rosuvastatin 20 mg Tablet
20 mg PO DAILY
Ensure Plus 0.05 gram- 1.5 kcal/mL liquid
237 ea PO ONCE Qty: 5688 0RF
guaifenesin [Mucinex] 600 mg tablet extended release 12hr
600 mg PO Q12H Qty: 30 0RF
Referrals:
UNKNOWN - PT DOES,NOT KNOW [Family Provider] -
Interventions
Interventions:
*Risk Screen - Suicide Last Done: 06/16/24 21:23
*General Assessment Last Done: 06/16/24 21:23
*Neglect/Abuse Screening Last Done: 06/16/24 21:23
ED- Fall Risk Assessment Last Done: 06/16/24 23:17
*ED COVID-19 Vaccine History Last Done: 06/16/24 23:17
*Nursing Disposition Last Done: 06/17/24 03:20
ED- Cardiac Assessment Last Done: 06/16/24 23:17
Discharge Date and Time
Discharge Date/Time: 06/17/24 03:37
Print Language: WELSH
[2024-06-16 23:01] VITALS: BP 105/93
[2024-06-16 23:17] VITALS: BMI 16.5
[2024-06-17] VITALS: BP 112/70
[2024-06-17] MEDS: NSS 1000 IV (01:18)
[2024-06-17 01:20] VITALS: BP 128/75
[2024-06-17 01:27] LABS: Urine Albumin 1+ (Neg - Trace); Urine Bilirubin Negative (Negative); Urine Character Clear (Clear); Urine Color Yellow; Urine Glucose Negative (Negative); Urine Ketone 2+ (Negative); Urine Leukocyte Negative (Negative); Urine Nitrite Negative (Negative); Urine Occult Blood Negative (Negative); Urine Urobilinogen Negative (Neg - 1+)
[2024-06-17 01:58] LABS: Urine Mucus Few; Urine Red Blood Cell 0-2 /HPF (0-2); Urine Squamous Cell 0-2 /LPF (Few); Urine White Cell 0-2 /HPF (0-5)
[2024-06-17 02:00] VITALS: BP 117/68
[2024-06-17 03:00] VITALS: BP 117/66
== END 2024-06-17 03:37 | disposition home or self-care (01) ==
LOC: EMR 21:18
PROVIDERS: Emergency Medicine; EMERGENCY PHYSICIAN Emergency Medicine
DX: R10.9 Unspecified abdominal pain (principal); G89.29 Other chronic pain; E78.00 Pure hypercholesterolemia, unspecified; J44.9 Chronic obstructive pulmonary disease, unspecified; K21.9 Gastro-esophageal reflux disease without esophagitis; Z87.891 Personal history of nicotine dependence; Z90.49 Acquired absence of other specified parts of digestive tract
CPT/HCPCS: 99285; 96360; 71046; 80053; 81003; 81015; 84484; 85025; 85610; 93005

== ENCOUNTER 2024-09-14 11:56 | Emergency (ER) | payer MEDICARE, OTHER, SELFPAY ==
[2024-09-14 12:00] VITALS: BP 117/75
[2024-09-14 13:02] LABS: % Basophils 1.4 % (0-2); % Eosinophils 0.3 % (0-6); % Immature Granulocytes 0.3 % (0-0.5); % Lymphocytes 45.7 % (20.5-51.1); % Monocytes 9.9 % (1.7-9.3); % Neutrophils 42.4 % (42.2-75.2); Absolute Basophils 0.1 10^3/uL (0-0.2); Absolute Lymphocytes 1.6 10^3/uL (1.2-3.4); Absolute Monocytes 0.4 10^3/uL (0.1-0.6); Absolute Neutrophils 1.5 10^3/uL (1.4-6.5); Hematocrit 46.4 % (39.0-52.0); Hemoglobin 15.1 g/dL (13.0-18.0); Mean Corp Hgb Conc. 32.5 g/dL (33.0-37.0); Mean Corpuscular Hgb 29.2 pg (27.0-31.0); Mean Corpuscular Volume 89.7 fL (80.0-94.0); Mean Platelet Volume 10.7 fL (7.4-10.4); Nucleated Red Blood Cells % 0 % (-); Platelet Count 219 10^3/uL (130-400); Red Blood Cell Count 5.17 10^6/uL (4.70-6.10); Red Cell Dist. Width 13.2 % (11.5-14.5); White Blood Cell Count 3.5 10^3/uL (4.8-10.8)
[2024-09-14 13:25] LABS: ALT (SGPT) 17 U/L (0-50); AST (SGOT) 28 U/L (17-59); Albumin 4.3 g/dl (3.5-5.0); Alkaline Phosphatase 55 U/L (38-126); Blood Urea Nitrogen 15 mg/dl (9-20); Calcium 9.6 mg/dl (8.4-10.2); Carbon Dioxide 26 mmol/L (22-30); Chloride 107 mmol/L (98-107); Glucose 77 mg/dl (70-99); Potassium 4.3 mmol/L (3.5-5.1); Sodium 143 mmol/L (135-145); Total Bilirubin 0.8 mg/dl (0.2-1.3); Total Protein 7.7 g/dl (6.3-8.2); eGFR > 60.00
[2024-09-14 14:48] LABS: Urine Albumin Negative (Neg - Trace); Urine Bilirubin Negative (Negative); Urine Character Clear (Clear); Urine Color Yellow; Urine Glucose Negative (Negative); Urine Ketone Negative (Negative); Urine Leukocyte Negative (Negative); Urine Nitrite Negative (Negative); Urine Occult Blood 3+ (Negative); Urine Specific Gravity 1.015 (<1.030); Urine Urobilinogen Negative (Neg - 1+)
[2024-09-14 15:00] VITALS: BP 110/77
[2024-09-14 15:14] LABS: Urine Squamous Cell None seen /LPF (Few); Urine White Cell None Seen /HPF (0-5)
--- NOTE | 2024-09-14 15:36 | ED.GENMED ---
History of Present Illness
General
Chief Complaint: Flank Pain
Time Seen by Provider: 09/14/24 12:26
History of Present Illness
History of Present Illness:
73-year-old male with history of COPD presents to the emergency department for evaluation of difficulty urinating beginning yesterday. He is Thai speaking and professional interpretation was used for initial history. He feels as though he has
not urinated since yesterday. Reports left lower quadrant and left flank pain since that time as well. No fevers or chills. Does take Flomax chronically but is stopped this over the past week
Past History
Past History
ED Past Medical History: COPD, GERD and Hypercholesterolemia
ED Past Surgical History: Appendectomy and Other (hernia repair, aortoiliac bypass)
Social History
Tobacco: Former smoker (2 packs per day until November 2013)
Alcohol: None
Drug: None
Personal:
Living: with family (lives with daughter)
Employment: Not employed
Family History
Family History: Other (Noncontributory)
Review of Systems
Review of Systems
Allergies reviewed?: Yes
All Other Systems: ROS reviewed and negative except as documented in HPI and ROS
Phy Exam
Physical Exam
Physical Exam:
GEN: Well appearing, NAD, profoundly thin
HEENT: Oral mucosa moist, no scleral icterus
Cardiac: Regular rate
Lung: No respiratory distress, no tachypnea
Abdomen: Flat, nontender
MSK: No gross deformity or injuries
Skin: Good color, no pallor or jaundice, no rashes
Neuro: AO x3, moves all extremities freely
Psych: Calm, cooperative
Course
Orders/Labs/Results
Orders:
Orders
09/14/24 12:50
CT Abd/pel Without Iv Or Oral Urgent
Comment:
Reason For Exam: L flank pain, difficulty urinating
09/14/24 12:52
Complete Blood Count/With Diff Urgent
Comprehensive Metabolic Panel Urgent
09/14/24 14:23
Urinalysis Reflex To Culture Urgent
Date Specimen was Collected: 09/14/24
Time Specimen was Collected: 14:23
Urine Microscopic Reflex Cult Urgent
Abnormal Lab Results
09/14/24 09/14/24
12:52 14:23
WBC 3.5 L 10^3/uL
(4.8-10.8)
MCHC 32.5 L g/dL
(33.0-37.0)
MPV 10.7 H fL
(7.4-10.4)
Monocytes % 9.9 H %
(1.7-9.3)
Ur Occult Blood Reflex 3+ A
(Negative)
Urine RBC 7-10 A /HPF
(0-2)
09/14/24 12:52
09/14/24 12:52
Vital Signs
Initial and Last Documented VS:
Initial Vital Signs
Temp Pulse Resp BP Pulse Ox
97.7 F 96 16 117/75 99
09/14/24 12:00 09/14/24 12:00 09/14/24 12:00 09/14/24 12:00 09/14/24 12:00
Last Documented Vital Signs
Temp Pulse Resp BP Pulse Ox
97.7 F 81 16 110/77 100
09/14/24 12:00 09/14/24 15:00 09/14/24 15:00 09/14/24 15:00 09/14/24 15:00
MDM/Problems Addressed
MDM/Problems Addressed:
Initially we were unable to obtain a bladder scan accurately as the bladder could not be visualized thus labs and CT obtained to evaluate for urinary obstruction or hydronephrosis. Although the bladder did not appear to be overfilled, there was
clearly urine in the bladder and given lack of other findings on CT we placed a Joyce catheter however only approximately 50 to 75 cc of urine was drained. Given this finding it is unlikely the patient has acute urinary retention. He has normal
renal function on labs. Unclear reason for his lack of urine output in the past day as his urine specimen is quite clear and not concentrated. Ultimately we removed the Joyce catheter due to potential infection risk, he was noted to be mildly
constipated on CT thus would encourage laxative usage and outpatient urologic follow-up. He is encouraged to restart his Flomax
*Critical Care Note
Total Time (30-74mins, 75-104mins- exclusive of procedures): Not Applicable
ED Attending Note
-
Portions of this chart may have been created with voice recognition software.� Occasional wrong word or��sound alike� substitutions may have occurred due to the inherent limitations of voice recognition software.
Discharge Plan
Departure
Patient Disposition: Home (Routine Discharge)
Date of Disposition: 09/14/24
Time of Disposition: 15:36
Patient with high blood pressure during this ER visit?: No
Discharge Problem:
Acute flank pain
Instructions: Flank Pain (DC)
Prescriptions:
No Action
cyanocobalamin (vitamin B-12) 1,000 MCG tablet
1,000 mcg PO DAILY
ezetimibe 10 MG tablet
10 mg PO DAILY
albuterol sulfate 2.5 MG/3 ML solution for nebulization
2.5 mg inhalation R Q4HPRN PRN (Reason: sob)
albuterol sulfate [Proventil HFA] 90 MCG/PUFF HFA aerosol inhaler
1 puff inhalation R Q4HPRN PRN (Reason: shortness of breath)
vitamin A 2,400 mcg Capsule
800 mcg PO DAILY
cholecalciferol (vitamin D3) [Vitamin D3] 50 mcg (2,000 unit) Capsule
50 mcg PO DAILY
sennosides-docusate sodium [Senna Plus] 8.6-50 mg Tablet
1 tab PO BID 30 Days Qty: 60 0RF
tamsulosin 0.4 mg Capsule
0.4 mg PO HS 30 Days Qty: 30 0RF
ascorbic acid (vitamin C) [Vitamin C] 500 mg Tablet
500 mg PO DAILY
vitamin E 268 mg (400 unit) Capsule
268 mg PO DAILY
zinc sulfate 50 mg zinc (220 mg) Capsule
50 mg PO DAILY
ibuprofen [Advil] 200 mg Tablet
400 mg PO Q8HPRN PRN (Reason: mild pain)
rosuvastatin 20 mg Tablet
20 mg PO DAILY
Ensure Plus 0.05 gram- 1.5 kcal/mL liquid
237 ea PO ONCE Qty: 5688 0RF
guaifenesin [Mucinex] 600 mg tablet extended release 12hr
600 mg PO Q12H Qty: 30 0RF
Referrals:
Gianluca Lewis DO [Family Provider] -
Activity Restrictions/Additional Instructions:
The cause of the flank pain is not clear at this time
There was no evidence of retention of large amounts of urine
Please restart your tamsulosin on a daily basis
Consider using [id number] laxatives as you appear to be constipated on your CT scan
Interventions
Interventions:
*Risk Screen - Suicide Last Done: 09/14/24 12:00
*Neglect/Abuse Screening Last Done: 09/14/24 12:00
*Nursing Disposition Last Done: 09/14/24 15:46
BJ-Skobfv-Yuwivkcwiq Assessment Last Done: 09/14/24 14:26
ED-Male Genitourinary Assessment Last Done: 09/14/24 14:26
Discharge Date and Time
Discharge Date/Time: 09/14/24 15:46
Print Language: SLOVENIAN
== END 2024-09-14 15:46 | disposition home or self-care (01) ==
LOC: EMR 11:56
PROVIDERS: Physician Assistant; EMERGENCY PHYSICIAN Emergency Medicine; FAMILY PHYSICIAN Family Medicine
DX: R10.9 Unspecified abdominal pain (principal); K59.00 Constipation, unspecified; J44.9 Chronic obstructive pulmonary disease, unspecified; E78.00 Pure hypercholesterolemia, unspecified; Z90.49 Acquired absence of other specified parts of digestive tract; Z87.891 Personal history of nicotine dependence
CPT/HCPCS: 99284; 74176; 80053; 81003; 81015; 85025

== ENCOUNTER 2025-02-28 12:19 | Emergency (ER) | payer MEDICARE, OTHER, SELFPAY ==
[2025-02-28 12:22] VITALS: BP 128/97
--- NOTE | 2025-02-28 13:42 | ED.GENMED ---
History of Present Illness
General
Chief Complaint: Breathing Problem
Source: patient and records
Exam Limitations: none
Time Seen by Provider: 02/28/25 13:25
Nursing documentation reviewed up to this point in time: agreed with
History of Present Illness
History of Present Illness:
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 Patient reports that
symptoms started last night and have been constant. He reports pain in his chest that radiates through to his back. He reports increased shortness of breath not improving with his usual inhalers. He also reports acute on chronic pain across his
entire abdomen and low back that he feels is worse over that same period of time. He has not had any vomiting. He did have some loose stools last night. No urinary symptoms.
Past History
Past History
ED Past Medical History: COPD, GERD and Hypercholesterolemia
ED Past Surgical History: Appendectomy and Other (hernia repair, aortoiliac bypass)
Social History
Tobacco: Former smoker (2 packs per day until November 2013)
Alcohol: None
Drug: None
Personal:
Living: with family (lives with daughter)
Employment: Not employed
Family History
Family History: Other (Noncontributory)
Review of Systems
Review of Systems
All Other Systems: ROS reviewed and negative except as documented in HPI and ROS
Constitutional: Denies fever
Respiratory: Reports trouble breathing; Denies cough
Cardiac: Reports chest pain
ABD/GI: Reports abdominal pain, nausea and diarrhea; Denies vomiting
: Denies flank pain
Musculoskeletal: Reports back pain; Denies edema or neck pain
Neurological: Denies dizzy or headache
Phy Exam
Physical Exam
Physical Exam:
General: Awake, alert, oriented x3; no acute distress
Head: Normocephalic, atraumatic
Eyes: Conjunctiva normal, sclera anicteric
Throat: Airway intact, handling secretions
Neck: Trachea midline, supple without meningismus
Lungs: Scattered bilateral wheezing, no tachypnea or hypoxia
Heart: Regular rate and rhythm, no murmurs, gallops, or rubs
Abd: Soft, non distended, diffusely tender but no peritoneal signs or masses
Back: No CVA tenderness
Neuro: Grossly intact
Skin: No rash in area of concern
Extremities: No edema in extremities, no calf tenderness, equal pulses in all extremities
Scores
Heart Failure Risk
Heart Failure Risk Score: Not Applicable
Heart Score for Chest Pain Patients
STEMI patient?: Not applicable
Withdrawal Assessment of Alcohol
Withdrawal Assessment Completed?: Not applicable
Course
Orders/Labs/Results
Orders:
Orders
02/28/25 12:25
Electrocardiogram (*1) Urgent
Reason for Study: Chest Pain
EKG- Treatment ONCE
02/28/25 13:41
CT Pe/abd/pel W Urgent
Comment:
Reason For Exam: chest pain, SOB, acute on chronic back pain, abd p
02/28/25 13:42
Urinalysis Reflex To Culture Urgent
02/28/25 13:47
Ipratropium/Albuterol Sulfate [Duoneb] 3 ml INH R NOW STA
02/28/25 13:55
COVID-19 Antigen Urgent
Source: Nasal Swab
Complete Blood Count/With Diff Urgent
Comprehensive Metabolic Panel Urgent
Ferritin Urgent
Iron Urgent
NT-proBNP Urgent
TIBC [Total Iron Binding] Urgent
TSH Reflex To Free T4 Urgent
Troponin I Urgent
Influenza A+B Rapid Molecular Urgent
JITENDRA Source: Nasal Swab
Specimen Description:
Abnormal Lab Results
02/28/25
13:55
WBC 2.7 L 10^3/uL
(4.8-10.8)
MCHC 32.5 L g/dL
(33.0-37.0)
MPV 11.5 H fL
(7.4-10.4)
Absolute Lymphs (auto) 0.7 L 10^3/uL
(1.2-3.4)
02/28/25 13:55
02/28/25 13:55
Vital Signs
Initial and Last Documented VS:
Initial Vital Signs
Temp Pulse Resp BP Pulse Ox
36.4 C 96 20 128/97 97
02/28/25 12:22 02/28/25 12:22 02/28/25 12:22 02/28/25 12:22 02/28/25 12:22
Last Documented Vital Signs
Temp Pulse Resp BP Pulse Ox
36.4 C 76 19 128/97 98
02/28/25 12:22 02/28/25 14:15 02/28/25 14:15 02/28/25 12:22 02/28/25 14:00
MDM/Problems Addressed
Differential Diagnosis Includes:
Chest pain/shortness of breath: Pneumonia, PE, pneumothorax, COPD exacerbation, angina/ACS
Abdominal/back pain: Diverticulitis, pancreatitis, cholelithiasis/cholecystitis, UTI, nephrolithiasis, bowel obstruction, enteritis, musculoskeletal pain
MDM/Problems Addressed:
74-year-old male presents to the ER with multiple complaints�mainly chest pain and shortness of breath as well as increased abdominal and back pain since last night. Vitals and exam as above. Plan to check labs including CBC and a CMP, lipase.
Check troponin and proBNP. Swab for COVID and flu. Will check CT chest, abdomen, pelvis. Will treat with a DuoNeb. Reassess after the above.
Labs reviewed: CBC shows mild leukopenia stable, CMP no clinically significant abnormalities. Troponin undetectable, proBNP not elevated. COVID and flu swabs negative. CT chest shows no PE but does show emphysematous changes. CT abdomen pelvis
shows no acute abnormalities. Patient clinically stable on reassessment. Overall suspect his chest pain and shortness of breath is likely related to COPD exacerbation. Will plan to treat with steroid course. Unclear etiology to his abdominal
discomfort. Can trial a PPI especially given he is starting steroid course. No clear indication for admission at this point, follow-up with PCP as an outpatient. Spoke about follow-up plan and return precautions with patient and all questions
answered.
Chronic conditions affecting care:
COPD, GERD, chronic abdominal pains
*Radiology
Radiology exam reviewed: radiology read reviewed
*Pulse Oximetry
SaO2: 97
Oxygen Mode of Delivery: Room air
Patient hypoxic: no (97%)
*EKG
Interpreted by ED Provider?: Yes
Heart Rate: 72
Rate: normal
Rhythm: sinus
[place]: normal axis
Interval: normal interval
QRS Pattern: normal QRS
Ischemia: non-specific ST changes
*Critical Care Note
Total Time (30-74mins, 75-104mins- exclusive of procedures): Not Applicable
Data Reviewed
Review of Other/Old Records Reveals: Labs, Records and Radiology Studies
Source: patient and records
ED Attending Note
-
Portions of this chart may have been created with voice recognition software.� Occasional wrong word or��sound alike� substitutions may have occurred due to the inherent limitations of voice recognition software.
Discharge Plan
Departure
Patient Disposition: Home (Routine Discharge)
Date of Disposition: 02/28/25
Time of Disposition: 15:41
Patient with high blood pressure during this ER visit?: No
Discharge Problem:
COPD exacerbation, Abdominal pain
Instructions: Exacerbation of COPD (DC), Abdominal pain in adults (DC)
Prescriptions:
New
prednisone 10 mg Tablet
See Rx Instructions .ROUTE .COMPLEX Qty: 30 0RF
Rx Instructions:
Take By Mouth:
40 mg daily x3 days, 30 mg daily x3 days,
20 mg daily x3 days, 10 mg daily x3 days.
pantoprazole [Protonix] 40 mg tablet,delayed release (DR/EC)
40 mg PO DAILY Qty: 30 0RF
No Action
cyanocobalamin (vitamin B-12) 1,000 MCG tablet
1,000 mcg PO DAILY
ezetimibe 10 MG tablet
10 mg PO DAILY
albuterol sulfate 2.5 MG/3 ML solution for nebulization
2.5 mg inhalation R Q4HPRN PRN (Reason: sob)
albuterol sulfate [Proventil HFA] 90 MCG/PUFF HFA aerosol inhaler
1 puff inhalation R Q4HPRN PRN (Reason: shortness of breath)
vitamin A 2,400 mcg Capsule
800 mcg PO DAILY
cholecalciferol (vitamin D3) [Vitamin D3] 50 mcg (2,000 unit) Capsule
50 mcg PO DAILY
sennosides-docusate sodium [Senna Plus] 8.6-50 mg Tablet
1 tab PO BID 30 Days Qty: 60 0RF
tamsulosin 0.4 mg Capsule
0.4 mg PO HS 30 Days Qty: 30 0RF
ascorbic acid (vitamin C) [Vitamin C] 500 mg Tablet
500 mg PO DAILY
vitamin E 268 mg (400 unit) Capsule
268 mg PO DAILY
zinc sulfate 50 mg zinc (220 mg) Capsule
50 mg PO DAILY
ibuprofen [Advil] 200 mg Tablet
400 mg PO Q8HPRN PRN (Reason: mild pain)
rosuvastatin 20 mg Tablet
20 mg PO DAILY
Ensure Plus 0.05 gram- 1.5 kcal/mL liquid
237 ea PO ONCE Qty: 5688 0RF
guaifenesin [Mucinex] 600 mg tablet extended release 12hr
600 mg PO Q12H Qty: 30 0RF
Referrals:
Ramo Isabel MD [Family Provider, Internal Medicine] - Follow up in 1 week
Activity Restrictions/Additional Instructions:
Thank you for visiting the Emergency Department at [facility].
1. Please schedule a follow up appointment as directed. Call first thing tomorrow morning to make an appointment.
2. If indicated, please take your medications as instructed and indicated on discharge paperwork.
3. If any of your symptoms do not improve, or persist, or become more severe within 6-12 hours, please return to the emergency department for further care.
4. Please return to the emergency department if you develop a headache, neck pain/stiffness, fever greater than 100.4F, chest pain, shortness of breath, persistent nausea, vomiting, slurred speech, difficulty walking, numbness/tingling, weakness,
signs of infection or any other symptoms that are worrisome to you.
Please call [phone] if you have any questions.
Discharge Date and Time
Print Language: SAMI
[2025-02-28 14:16] VITALS: BP 124/80
[2025-02-28 14:19] LABS: Hematocrit 46.7 % (39.0-52.0); Hemoglobin 15.2 g/dL (13.0-18.0); Mean Corp Hgb Conc. 32.5 g/dL (33.0-37.0); Mean Corpuscular Volume 87.6 fL (80.0-94.0); Nucleated Red Blood Cells % 0 % (-); Platelet Count 199 10^3/uL (130-400); Red Cell Dist. Width 14.1 % (11.5-14.5)
[2025-02-28 14:42] LABS: ALT (SGPT) 17 U/L (0-50); AST (SGOT) 27 U/L (17-59); Albumin 4.7 g/dl (3.5-5.0); Alkaline Phosphatase 80 U/L (38-126); Blood Urea Nitrogen 11 mg/dl (9-20); Calcium 9.4 mg/dl (8.4-10.2); Carbon Dioxide 25 mmol/L (22-30); Chloride 107 mmol/L (98-107); Glucose 90 mg/dl (70-99); Iron 154 ug/dl (49-181); Potassium 4.4 mmol/L (3.5-5.1); Sodium 140 mmol/L (135-145); Total Protein 7.8 g/dl (6.3-8.2); eGFR > 60.00
[2025-02-28 14:46] LABS: COVID-19 Antigen Negative (Negative)
[2025-02-28 14:51] LABS: Total Iron Binding Capacity 367 ug/dl (261-462)
[2025-02-28 14:53] LABS: Troponin I < 0.012 ng/ml
[2025-02-28 15:00] VITALS: BP 127/77
[2025-02-28 15:17] LABS: Ferritin 35.0 ng/ml (17.9-464.0)
[2025-02-28 15:31] VITALS: BP 118/87
[2025-02-28] MEDS: DUONEB 3 ML INH (15:45)
[2025-02-28] MEDS: PROTONIX 40 MG PO (15:50)
[2025-02-28] MEDS: DELTASONE 50 MG PO (15:50)
[2025-02-28 16:00] VITALS: BP 141/88
[2025-02-28 17:04] LABS: Urine Character Clear (Clear)
[2025-02-28 17:20] LABS: Urine Red Blood Cell 0-2 /HPF (0-2); Urine Squamous Cell 0-2 /LPF (Few); Urine White Cell 0-2 /HPF (0-5)
[2025-02-28 17:22] LABS: HDL Cholesterol 74 mg/dl; LDL Cholesterol, Calculated 65 mg/dl; Very Low Density Lipoprotein 15 mg/dl (0-30)
== END 2025-02-28 15:45 | disposition home or self-care (01) ==
LOC: EMR 12:19
PROVIDERS: EMERGENCY PHYSICIAN Emergency Medicine; FAMILY PHYSICIAN Internal Medicine
DX: J44.1 Chronic obstructive pulmonary disease with (acute) exacerbation (principal); R10.9 Unspecified abdominal pain; G89.29 Other chronic pain; E78.00 Pure hypercholesterolemia, unspecified; K21.9 Gastro-esophageal reflux disease without esophagitis; Z87.891 Personal history of nicotine dependence
CPT/HCPCS: 99284; 94640; 71275; 74177; 80053; 80061; 81003; 81015; 82728; 83540; 83550; 83880; 84443; 84484; 85025; 87502; 87811; 93005; Q9967